=== PATIENT | female | born 1995 | race Hispanic/Latino ===

== ENCOUNTER 2024-12-03 01:28 | Inpatient (IN) | payer SELFPAY ==
[2024-12-03] VITALS (8 sets, daily range): BP systolic 89–122; BP diastolic 55–73; PULSE 74–112; RESP 18–20; TEMP 98.1–102.9; O2SAT 100
[~2024-12-03] VITALS: Ht 162.6 cm; Wt 75.6 kg
--- NOTE | 2024-12-03 01:44 | NUR ---
SEPSIS ALERT CALLED TO ROOM 20, PT WITH FEVER OF 105.3, PULSE OF 161
[2024-12-03] MEDS: 0.9%NACL 1000ML 2,190 ML IV ONE (01:54)
--- NOTE | 2024-12-03 01:54 | ERN ---
General Chief Complaint: Back Pain-No Injury Stated Complaint: C/O DIZZINESS, LEFT LOWER BACK PAIN Time Seen by MD: 01:41 Time Seen by Midlevel: 01:41 Source: patient History of Present Illness Initial Comments 29-year-old female who presents to the emergency department due to left lower back pain. Patient reports she initiated with dysuria and urinary tract symptoms one week ago. Patient was initiated on antibiotics (Bactrim) today. States she initiated feeling dizzy, nausea, vomiting, left back pain, chills onset this evening. Denies significant past medical history. Allergies: Coded Allergies: No Known Allergies (Unverified Allergy, Unknown, 12/03/24) Past Medical History Past Medical History: No Pertinent History Past Surgical History: Female( History) LMP: Nov 02, 2024 ROS Dictation Constitutional: Positive for chills Negative for fever, and weight loss Eyes: Negative for injury, pain,redness, and discharge ENT: Negative for injury,pain or swelling Cardiovascular: Negative for chest pain, palpitations, and edema Respiratory: Negative for shortness of breath, cough, and wheezing, Abdomen/GI: Positive for nausea, vomiting Negative for abdominal pain, diarrhea, and constipation Back: Positive for back pain Negative for injury and pain : Positive for dysuria Negative for bleeding or discharge MS/Extremity: Negative for injury and deformity Skin: Negative for rash, and discoloration Neuro: Negative for headache, weakness, numbness, tingling, and seizure Psych: Negative for suicide ideation, homicidal ideation, and hallucinations Physical Exam Orientation: (+) alert, (+) oriented x 3 Head/Face Trauma: No Eye: bilateral eye normal inspection, bilateral eye PERRL, bilateral eye EOMI Ear, Nose, Throat: (+) hearing grossly normal, (+) normal ENT inspection, (+) moist mucous membraine Neck: (+) normal inspection, (+) supple, (+) full range of motion Respiratory: (+) chest non-tender, (+) lungs clear Heart: (+) tachycardia Vascular: (+) no edema, (+) normal peripheral pulse Gastrointestinal: (+) soft, (+) bowel sound present, (+) tender Back: (+) CVA tenderness (L) Results Laboratory and Microbiology Lab and Micro Result Laboratory Tests Test 12/03/24 02:15 8/12/25 02:16 White Blood Count 8.2 K/uL (4.8-10.8) Red Blood Count 4.15 MIL/uL (4.00-5.50) Hemoglobin 12.9 g/dL (12.0-16.0) Hematocrit 38.5 % (36-48) Mean Corpuscular Volume 92.8 fL (79-99) Mean Corpuscular Hemoglobin 31.1 pg (27.0-33.0) Mean Corpuscular Hemoglobin Concent 33.5 g/dL (32.0-36.0) Red Cell Distribution Width 12.7 % (11.0-15.5) Platelet Count 229 K/uL (130-400) Mean Platelet Volume 9.4 fL (7.5-10.5) Immature Granulocyte % (Auto) 0.4 % (0-1) Neutrophils (%) (Auto) 87.2 % (40.0-77.0) H Lymphocytes (%) (Auto) 9.2 % (21.0-51.0) L Monocytes (%) (Auto) 2.7 % (3.0-13.0) L Eosinophils (%) (Auto) 0.1 % (0.0-8.0) Basophils (%) (Auto) 0.4 % (0.0-5.0) Neutrophils # (Auto) 7.1 K/uL (1.8-7.7) Lymphocytes # (Auto) 0.8 K/uL (1.0-4.8) L Monocytes # (Auto) 0.2 K/uL (0.1-1.0) Eosinophils # (Auto) 0.01 K/uL (0.00-0.70) Basophils # (Auto) 0.03 K/uL (0.00-0.20) Absolute Immature Granulocyte (auto 0.03 K/uL (0-1) Nucleated Red Blood Cells 0.0 % (0.0-0.19) Urine Color YELLOW (YELLOW) Urine Appearance CLOUDY (CLEAR) H Urine pH 6.0 (5.0-8.0) Urine Specific [place] 1.023 (1.001-1.031) Urine Protein 100 mg/dL (NEGATIVE) H Urine Glucose (UA) NEGATIVE mg/dL (NEGATIVE) Urine Ketones 5 mg/dL (NEGATIVE) H Urine Occult Blood MODERATE (NEGATIVE) H Urine Nitrate NEGATIVE (NEGATIVE) Urine Bilirubin 0.5 mg/dL (NEGATIVE) H Urine Urobilinogen 3 mg/dL (0.2-1.0) H Urine Leukocyte Esterase 250 Maria De Jesus/uL (NEGATIVE) H Urine RBC 26-50 /HPF (0-1) H Urine WBC >100 /HPF (0-1) H Urine Squamous Epithelial Cells FEW /HPF (0-2) Urine Bacteria RARE /HPF (None Seen) Urine HCG, Qualitative NEGATIVE (NEGATIVE) Sodium Level 137 mmol/L (136-145) Potassium Level 3.5 mmol/L (3.5-5.1) Chloride Level 101 mmol/L (101-111) Carbon Dioxide Level 26 mmol/L (21-32) Blood Urea Nitrogen 11 mg/dL (7-18) Creatinine 0.8 mg/dL (0.5-1.0) Glomerular Filtration Rate Calc 102 mL/min (>90) Random Glucose 141 mg/dL (70-105) H Lactic Acid Level 2.2 mmol/L (0.8-2.5) Total Calcium 8.9 mg/dL (8.5-10.1) Total Bilirubin 2.5 mg/dL (0.2-1.0) H Direct Bilirubin 1.0 mg/dL (0.0-0.3) H Aspartate Amino Transf (AST/SGOT) 123 U/L (10-37) H Alanine Aminotransferase (ALT/SGPT) 122 U/L (12-78) H Alkaline Phosphatase 84 U/L (50-136) Total Protein 7.2 g/dL (6.0-8.3) Albumin 3.4 g/dL (3.5-5.0) L Lipase 28 U/L (16-77) MDM Patient comes in tachycardic and febrile and made a sepsis alert. Patient given fluids labs drawn and a CT scan ordered to rule out pyelonephritis. She was given antibiotics. Her lactate came back at 2.2 she was given a 2 L of fluids and a 2nd lactate was ordered. I will call the hospitalist and admit her to the service. ED Course Orders Procedure Category Date Status Time Cbc With Differential LAB 12/03/24 In Process 01:41 Basic Metabolic Panel LAB 12/03/24 Complete 01:41 Urinalysis LAB 12/03/24 Complete W/Microscopic 01:41 Blood Cult YOLA 12/03/24 In Process 01:41 Lactic Acid LAB 12/03/24 Complete 01:41 ,Urine Test LAB 12/03/24 Complete 01:41 Lipase LAB 12/03/24 Complete 01:41 Hepatic Function Panel LAB 12/03/24 Complete 01:41 Ct Abdomen/Pelvis W/O CT 12/03/24 Resulted Contrast 01:41 Acetaminophen 500mg PHA 12/03/24 Complete Tab (Tylenol 500mg T 02:00 Ondansetron 4mg Inj PHA 12/03/24 Complete (Zofran 4mg Inj) 02:00 0.9%Nacl 1000ml (Ns PHA 12/03/24 In Process 1000ml) 02:00 Culture Urine YOLA 12/03/24 In Process 02:56 Ceftriaxone 1g Vial PHA 12/03/24 Complete (Rocephine 1g Inj) 03:00 Ketorolac PHA 12/03/24 Complete Tromethamine 15mg/Ml 03:00 Current Medications Medications (Trade) Dose Ordered Sig/Aiden Route PRN Reason Start Time Stop Time Status Last Admin Dose Admin Acetaminophen (TYLenol 500MG TAB) 1,000 mg ONCE ONCE PO 12/03/24 02:00 12/03/24 02:01 DC 12/03/24 01:54 Ceftriaxone Sodium (ROCEphine 1G INJ) 1 gm ONCE ONCE IVPB 12/03/24 03:00 12/03/24 03:07 DC 12/03/24 03:11 Ketorolac Tromethamine (toRADol) 15 mg ONCE ONCE IV 12/03/24 03:00 12/03/24 03:07 DC 12/03/24 03:12 Ondansetron HCl (zoFRAN 4MG INJ) 4 mg ONCE ONCE IVP 12/03/24 02:00 12/03/24 02:01 DC 12/03/24 01:54 Sodium Chloride 2,190 ml @ 730 mls/hr ONCE ONCE IV 12/03/24 02:00 12/03/24 04:59 12/03/24 01:54 Vital Signs Date Time Temp Pulse Resp B/P (MAP) Pulse Ox O2 Delivery O2 Flow Rate FiO2 12/03/24 03:15 107 22 96/52 98 Room Air* 0 21 12/03/24 02:46 101.7 110 20 104/63 97 Room Air* 0 21 12/03/24 01:54 105.1 12/03/24 01:46 105.1 142 22 92/55 97 Room Air* 0 21 12/03/24 01:35 105.3 161 20 106/52 97 Room Air DX & DISP Disposition: Inpatient Departure Impression: Primary Impression: Pyelonephritis Additional Impression: Lactic acidemia Condition: Stable CONNIE FLORES Dec 03, 2024 01:54 SUE JACOME MD Dec 03, 2024 04:09
[2024-12-03 02:15] LABS: IMMATURE GRANULOCYTE ABSOLUTE 0.03 K/uL (0-1); NUCLEATED RED BLOOD CELLS 0.0 % (0.0-0.19); PLATELET COUNT (AUTO) 229 K/uL (130-400); RED BLOOD CELL COUNT(AUTO) 4.15 MIL/uL (4.00-5.50); RED CELL DISTRIBUTION WIDTH 12.7 % (11.0-15.5); WHITE BLOOD COUNT (AUTO) 8.2 K/uL (4.8-10.8)
[2024-12-03 02:32] LABS: CREATININE 0.8 mg/dL (0.5-1.0); GLOMERULAR FILTR. RATE CALC 102.0 mL/min (>90); GLUCOSE,RANDOM 141.0 mg/dL (70-105); SODIUM SERUM 137.0 mmol/L (136-145); UREA NITROGEN, BLOOD 11.0 mg/dL (7-18)
[2024-12-03 02:36] LABS: ASPARTATE AMINOTRANSFERASE 123.0 U/L (10-37); TOTAL PROTEIN, SERUM 7.2 g/dL (6.0-8.3)
[2024-12-03 02:39] LABS: HCG,QUALITATIVE URINE NEGATIVE (NEGATIVE)
[2024-12-03 02:56] LABS: APPEARANCE,URINE CLOUDY (CLEAR); GLUCOSE, URINE (UA) NEGATIVE (NEGATIVE); LEUKOCYTE ESTERASE ,URINE 250 Leu/uL (NEGATIVE); NITRATE,URINE NEGATIVE (NEGATIVE); OCCULT BLOOD,URINE MODERATE (NEGATIVE); SQUAMOUS EPITHELIAL CELL,UR FEW /HPF (0-2)
--- NOTE | 2024-12-03 03:53 | HMCIMG ---
EXAM: CT Abdomen and Pelvis without IV contrast CLINICAL HISTORY: Left flank pain. TECHNIQUE: Thin collimated axial CT images of the abdomen and pelvis were obtained with sagittal and coronal reformatted images also submitted. CT scan is done according to ALARA (As Low As Reasonably Achievable). CONTRAST: None. COMPARISON: None. FINDINGS: The included lungs are clear. Mild to moderate hepatomegaly measures up to 22 cm craniocaudally. No focal hepatic abnormality. No focal abnormality within the gallbladder, pancreas, spleen, or adrenals. 0.2 cm obstructive calculus at the left vesicoureteral junction with mild proximal hydroureteronephrosis and perinephric inflammatory changes. There is a punctate nonobstructive calculus at the right renal lower pole. Grossly unremarkable urinary bladder. The uterus and ovaries are within normal limits. No obvious bowel wall thickening, dilatation, or obstruction. Unremarkable appendix. Uncomplicated colonic diverticula. Limited evaluation of the abdominal vessels due to the lack of intravenous contrast. No abdominal aortic aneurysm is evident. No pathological lymphadenopathy in the abdomen or pelvis. No ascites or pneumoperitoneum is evident. No acute bony abnormality is evident. Mild levocurvature of the thoracolumbar spine. IMPRESSIONS: 0.2 cm obstructive calculus at the left vesicoureteral junction with mild proximal hydroureteronephrosis and perinephric inflammatory changes. There is a punctate nonobstructive calculus at the right renal lower pole. Mild to moderate hepatomegaly without focal hepatic abnormality. Uncomplicated colonic diverticula. /[place]
[2024-12-03] MEDS: LACTATED RINGERS 1000ML IV STA (04:36)
--- NOTE | 2024-12-03 04:36 | HP ---
[facility] HISTORY AND PHYSICAL Date of Service: Dec 03, 2024 Time of Service: 04:35 Attending/ Supervising physicians: Dr. Hays and Dr. Katya Vela HISTORY OF PRESENT ILLNESS: Ms. Verdugo is a 29-year-old female with no past medical history who presents to [facility] ED for evaluation of left lower back pain. Patient reported she initiated with dysuria and urinary tract symptoms one week ago. Patient was initiated on antibiotics (Bactrim) today. She states she initiated feeling dizzy, nausea, vomiting, left back pain, chills onset this evening. Patient presented with a blood pressure of 106/52, heart rate 161, 105.3 F, 97% on room air. WBCs WNL. Lactic acid 2.2. Liver enzymes are elevated. Lipase WNL. UA: Positive ketones, leukocytes esterase. CT abdomen and pelvis without contrast: 0.2 cm obstructive calculus at the left vesicoureteral junction with mild proximal hydroureteronephrosis and perinephric inflammatory changes. There is a punctate nonobstructive calculus at the right renal lower pole. Mild to moderate hepatomegaly without focal hepatic abnormality. Uncomplicated colonic diverticula. ED administered LR1 L bolus, NS 2 L, Toradol 50 mg IV, Rocephin1 g, Zofran mg IV, Tylenol 1 g. ED provider requested patient be admitted to the hospital with a diagnosis of pyelonephritis and lactic acidemia. I assessed the patient at bedside. The patient appeared comfortable, breathing was even, unlabored, in no distress. She denied any chest pain, shortness of breath, any other pain, problem or concern. She states that the medications said they gave her helped her with the pain. I informed her of labs, diagnostics, and plan of care. She verbalized understanding and is in agreement with the plan. Plan and assessment are listed below. REVIEW OF SYSTEMS 12-point ROS reviewed with patient. All pertinent positives mentioned above. Otherwise negative, noncontributory, non-pertinent. PAST MEDICAL HISTORY: Denied PAST SURGICAL HISTORY: None PAST SOCIAL HISTORY: Denied alcohol, tobacco, illicit drug use FAMILY HISTORY: Noncontributory Coded Allergies: No Known Allergies (Unverified Allergy, Unknown, 12/03/24) PHYSICAL EXAM GENERAL APPEARANCE: The patient is awake, alert, and oriented, in no acute cardiopulmonary distress. NEUROLOGICAL: Cranial nerves II-XII grossly intact. Motor is 5/5 in bilateral upper and lower extremities proximal to distal. No sensory deficits. HEENT: Face is symmetric. Pupils are equal and reactive. Extraocular movements are intact. NECK: Supple. No JVD. No thyromegaly. No submental, submandibular, pre- /postauricular, occipital or supraclavicular lymphadenopathy. CHEST: Normal chest expansion. No Telemetry. LUNGS: Absence of any rales, rhonchi or any wheezing. CARDIOVASCULAR: Regular. S1 and S2 normal. No appreciable rubs, murmurs or gallops. ABDOMEN: Soft, nontender, and nondistended. There is no rebound, voluntary guarding, or rigidity. : Deferred. No Cole. EXTREMITIES: Non-edematous and not cyanotic. No clubbing. Good capillary refill. SKIN: No skin breakdown. Vital Sign (Last 24 Hours) 12/03/24 12/03/24 02:46 03:15 Temp 101.7 Pulse 107 Resp 22 B/P (MAP) 96/52 Pulse Ox 98 O2 Delivery Room Air* O2 Flow Rate 0 FiO2 21 LABS: Laboratory: Test 12/03/24 02:16 12/03/24 02:15 Range/Units Urine Color YELLOW YELLOW Urine Appearance CLOUDY H CLEAR Urine pH 6.0 5.0-8.0 Urine Specific [place] 1.023 1.001-1.031 Urine Protein 100 H NEGATIVE mg/dL Urine Glucose (UA) NEGATIVE NEGATIVE mg/dL Urine Ketones 5 H NEGATIVE mg/dL Urine Occult Blood MODERATE H NEGATIVE Urine Nitrate NEGATIVE NEGATIVE Urine Bilirubin 0.5 H NEGATIVE mg/dL Urine Urobilinogen 3 H 0.2-1.0 mg/dL Urine Leukocyte Esterase 250 H NEGATIVE Maria De Jesus/uL Urine RBC 26-50 H 0-1 /HPF Urine WBC >100 H 0-1 /HPF Urine Squamous Epithelial Cells FEW 0-2 /HPF Urine Bacteria RARE None Seen /HPF Urine HCG, Qualitative NEGATIVE NEGATIVE Sodium Level 137 136-145 mmol/L Potassium Level 3.5 3.5-5.1 mmol/L Chloride Level 101 101-111 mmol/L Carbon Dioxide Level 26 21-32 mmol/L Blood Urea Nitrogen 11 7-18 mg/dL Creatinine 0.8 0.5-1.0 mg/dL Glomerular Filtration Rate Calc 102 >90 mL/min Random Glucose 141 H 70-105 mg/dL Lactic Acid Level 2.2 0.8-2.5 mmol/L Total Calcium 8.9 8.5-10.1 mg/dL Total Bilirubin 2.5 H 0.2-1.0 mg/dL Direct Bilirubin 1.0 H 0.0-0.3 mg/dL Aspartate Amino Transf (AST/SGOT) 123 H 10-37 U/L Alanine Aminotransferase (ALT/SGPT) 122 H 12-78 U/L Alkaline Phosphatase 84 50-136 U/L Total Protein 7.2 6.0-8.3 g/dL Albumin 3.4 L 3.5-5.0 g/dL Lipase 28 16-77 U/L White Blood Count 8.2 4.8-10.8 K/uL Red Blood Count 4.15 4.00-5.50 MIL/uL Hemoglobin 12.9 12.0-16.0 g/dL Hematocrit 38.5 36-48 % Mean Corpuscular Volume 92.8 79-99 fL Mean Corpuscular Hemoglobin 31.1 27.0-33.0 pg Mean Corpuscular Hemoglobin Concent 33.5 32.0-36.0 g/dL Red Cell Distribution Width 12.7 11.0-15.5 % Platelet Count 229 130-400 K/uL Mean Platelet Volume 9.4 7.5-10.5 fL Immature Granulocyte % (Auto) 0.4 0-1 % Neutrophils (%) (Auto) 87.2 H 40.0-77.0 % Lymphocytes (%) (Auto) 9.2 L 21.0-51.0 % Monocytes (%) (Auto) 2.7 L 3.0-13.0 % Eosinophils (%) (Auto) 0.1 0.0-8.0 % Basophils (%) (Auto) 0.4 0.0-5.0 % Neutrophils # (Auto) 7.1 1.8-7.7 K/uL Lymphocytes # (Auto) 0.8 L 1.0-4.8 K/uL Monocytes # (Auto) 0.2 0.1-1.0 K/uL Eosinophils # (Auto) 0.01 0.00-0.70 K/uL Basophils # (Auto) 0.03 0.00-0.20 K/uL Absolute Immature Granulocyte (auto 0.03 0-1 K/uL Nucleated Red Blood Cells 0.0 0.0-0.19 % White Cell Morphology Comment See comments Current Medications Medications (Trade) Dose Ordered Sig/Aiden Route PRN Reason Start Time Stop Time Status Last Admin Dose Admin Lactated Ringer's (Lactated Ringers 1000ml) 1,000 ml BOLUS STAT IV 12/03/24 04:07 12/03/24 04:11 DC DIAGNOSTICS / RADIOLOGY: [ ] ASSESSMENT: Severe Sepsis, POA Hypotension, in need of multiple boluses and Midodrine Acute complicated cystitis, POA 0.2 cm obstructive calculus at the left vesicoureteral junction with: -mild proximal hydroureteronephrosis -perinephric inflammatory changes per CT on 12/03/2024 Punctate nonobstructive calculus at the right renal lower pole, per CT on 12/03/2024 Pyelonephritis, POA Lactic acidemia, POA Acute dehydration, POA/ketonuria, POA Acute febrile illness, POA Hepatomegaly, mild to moderate, per CT on 12/03/2024 Uncomplicated colonic diverticula, per CT on 12/03/2024 Hyperglycemia Transaminitis Hypoalbuminemia PLAN: -Admit to Medical floor. -Zosyn 3.375 IV q.8 hours. (ED administered Rocephin1 g) -LR at 150 mL/ hour. (ED administered LR 1 L bolus and NS 2 L bolus) -Flomax 0.4 mg p.o. daily 1st dose now. -Midodrine 10 mg p.o. one time dose. -Follow urine cultures and blood cultures. -Strain all urine. -Strict I&Os. -Consult urologist for obstructive calculus at the left vesicoureteral junction with mild proximal hydroureteronephrosis and perinephric inflammatory changes. -Obtain flu, COVID, and rapid strep swabs. -Follow urine cultures and blood cultures. -P.r.n. medications for pain management, nausea, vomiting, constipation, fever. -Monitor renal and liver function. -Monitor electrolytes and treat accordingly PRN. -Reconcile home medications once available. -Prn Glucometer checks. -Monitor respiratory status. -Oxygen therapy as needed. Titrate oxygen prn to keep Spo2>/+=92%. -Blood pressure checks every 4 hours and as needed. -AM labs. -GI and DVT prophylaxis -Further plan/orders per hospitalization course. ADVANCED CARE PLANNING 1. Which of the following were discussed? Hospice Care - No Therapeutic options - Yes Advance Directives - Yes Other discussions - 2. Discussed with who? The patient 3. Voluntary nature of this service was explained to the patient? Yes 4. Amount of time spent - _ critical care time: Over 35 minutes 5. Reviewed by Physician? (if this service was performed by GURDEEP) Yes ATTESTATION BY PHYSICIAN I reviewed the documentation, medical decision making, and treatment plan as noted by the GURDEEP above. I agree with the findings and plan of care. SHILOH KELLER [facility] Dec 03, 2024 04:36
[2024-12-03] MEDS ORDERED: LACTULOSE 20 GM/30 ML UDCUP PO PRN (05:00)
[2024-12-03] MEDS ORDERED: HYDROcodone/APAP 5/325 1 TAB TABLET PO PRN ×2 (05:00→10:30)
[2024-12-03] MEDS: LACTATED RINGERS 1000ML 1,000 ML IV SCH ×2 (05:16→06:05)
[2024-12-03 06:35] LABS: RAPID GROUP A STREP negative (NEGATIVE); SARS-CoV-2, RNA, NAAT NEGATIVE SARS CoV-2 (NEGATIVE)
[2024-12-03 06:45] LABS: INFLUENZA TYPE A Negative For Type A (NEGATIVE); INFLUENZA TYPE B Negative For Type B (NEGATIVE)
[2024-12-03] MEDS ORDERED: BACTSS PO (09:49)
[2024-12-03 10:34] LABS: NUCLEATED RED BLOOD CELLS 0.0 % (0.0-0.19); PLATELET COUNT (AUTO) 183.0 K/uL (130-400); RED BLOOD CELL COUNT(AUTO) 3.36 MIL/uL (4.00-5.50); RED CELL DISTRIBUTION WIDTH 12.9 % (11.0-15.5); WHITE BLOOD COUNT (AUTO) 10.7 K/uL (4.8-10.8)
[2024-12-03 10:42] LABS: CREATININE 0.6 mg/dL (0.5-1.0); GLOMERULAR FILTR. RATE CALC 125.0 mL/min (>90); GLUCOSE,RANDOM 133.0 mg/dL (70-105); SODIUM SERUM 137.0 mmol/L (136-145); UREA NITROGEN, BLOOD 9.0 mg/dL (7-18)
[2024-12-03 10:47] LABS: ASPARTATE AMINOTRANSFERASE 66.0 U/L (10-37); TOTAL PROTEIN, SERUM 5.5 g/dL (6.0-8.3)
[2024-12-03] MEDS ORDERED: ZOSYN 3.375GM +NS 50ML IVPB SCH (11:00)
[2024-12-03] MEDS ORDERED: 0.9%NACL 50ML IV SCH (11:00)
--- NOTE | 2024-12-03 15:23 | NUR ---
DCP:HOME Pt currently resides with her sps in their home. Pt does not report insecurities with food, prison, and/or utilities. Pt does not have DME, home health, or provider services. pt states that she is able to complete ADLs independently. Pt does not have a PCP, SW gave pt community resources and she stated that she will be registering with [facility] at [place]. AT [place] pt will want to go home and family can assist with transportation. Addendum: 12/03/24 at 1525 by BLANCA YEN SS Amended: Links added.
[2024-12-03] MEDS: MAGNESIUM 2GM PREMIX 50ML 50 ML IV SCH (16:22)
--- NOTE | 2024-12-03 17:30 | HMCIMG ---
CLINICAL INFORMATION Hepatomegaly, elevated liver enzymes COMPARISON CT abdomen and pelvis 12/03/2024 TECHNIQUE Transabdominal imaging of the right upper quadrant. FINDINGS LIVER Echogenicity: Normal. Size and Contour: Prominent size of the right hepatic lobe. Portal vein: Patent with hepatopetal flow and a normal waveform. BILIARY Ducts: Normal caliber intra and extrahepatic ducts. Gallbladder: Gallbladder wall thickening measuring up to 7 mm. RIGHT KIDNEY Echogenicity: Normal Size and Contour: Normal Stones: None Hydronephrosis: None. Cysts: None. Pancreas: Limited visualization. Other: No ascites or pleural effusion. MEASUREMENTS (cm) Liver length: 7 cm (normal variable, typically <15-16 cm in mid clavicular line) Common duct: 0.4 cm (normal variable by age and gallbladder status, typically <6 mm) Right Kidney (LxHxW): 11 cm IMPRESSION Prominent size of the right hepatic lobe. No evidence of hepatic steatosis or other parenchymal abnormality. Gallbladder wall thickening measuring up to 7 mm. No cholelithiasis or pericholecystic fluid. Findings are nonspecific and may be related to underlying liver disease. /Tyler
[2024-12-03 22:41] LABS: HEPATITIS A IGM ANTIBODY Non-Reactive (Nonreactive); HEPATITIS B CORE IGM ANTIBODY Non-Reactive (Negative)
--- NOTE | 2024-12-03 23:37 | NUR ---
EULA OLIVEIRA NOTIFIED OF PATIENTS FEVER TRENDING UP AFTER TYLENOL. PATIENT RECENTLY SHOWERED AND HAS ICE PACKS UNDER AXILLAS, BEHIND NECK AND IN GROIN. NO NEW ORDERS RECEIVED, CONTINUING TO MONITOR.
[2024-12-04] VITALS (10 sets, daily range): BP systolic 106–117; BP diastolic 61–72; PULSE 92–102; RESP 17–19; TEMP 97.6–102.3; O2SAT 96
[2024-12-04 05:08] LABS: NUCLEATED RED BLOOD CELLS 0.0 % (0.0-0.19); PLATELET COUNT (AUTO) 164.0 K/uL (130-400); RED BLOOD CELL COUNT(AUTO) 3.4 MIL/uL (4.00-5.50); RED CELL DISTRIBUTION WIDTH 13.0 % (11.0-15.5); WHITE BLOOD COUNT (AUTO) 7.2 K/uL (4.8-10.8)
[2024-12-04 05:33] LABS: CREATININE 0.6 mg/dL (0.5-1.0); GLOMERULAR FILTR. RATE CALC 125.0 mL/min (>90); GLUCOSE,RANDOM 113.0 mg/dL (70-105); PHOSPHORUS 1.9 mg/dL (2.5-4.9); SODIUM SERUM 136.0 mmol/L (136-145); UREA NITROGEN, BLOOD 6.0 mg/dL (7-18)
--- NOTE | 2024-12-04 10:23 | PN ---
INFECTIOUS DISEASE FOLLOWUP NOTE DATE OF SERVICE: 12/03/2024 SUBJECTIVE: The patient is seen and examined at bedside. No fever or chills. Complaining of lower abdominal pain. No cough, no hemoptysis. Tolerating antibiotic. No chest pain. No palpitations or orthopnea. No depression. No suicidal ideation. PHYSICAL EXAMINATION: VITAL SIGNS: Temperature 98.9. EYES: No icterus. Pupils are equal and reactive. HENT: No oral thrush seen. Moist oral mucosa. NECK: Supple. No JVD or thyromegaly. LUNGS: Good air entry. No rales. No rhonchi. CARDIOVASCULAR SYSTEM: S1 and S2, regular. No murmur heard. ABDOMEN: Full, soft. Mild tenderness left quadrant. CENTRAL NERVOUS SYSTEM: Awake, alert, oriented x 3. No focal deficits. SKIN: No rashes. No itchiness. LYMPHATIC: No peripheral lymphadenopathy. BACK: No deformity. No pressure ulcer. HEMATOLOGIC: No bleeding or petechial lesions seen. MUSCULOSKELETAL: No joint swelling, erythema or tenderness. ASSESSMENT: A 29-year-old female presented with fever, chills and flank pain. CURRENT PROBLEMS: Include: * Possible gram-negative sepsis. * Left-sided hydronephrosis. * UTI. * Abdominal pain. PLAN: * Continue ceftriaxone. * Follow up cultures. * Continue IV fluids. * Continue pain management. * Continue antiemetic. * Continue Flomax. * Monitor electrolyte and correct as needed. TID: [id number] RECEIPT: [id number]
--- NOTE | 2024-12-04 10:30 | CONS ---
REQUESTING PHYSICIAN: Parminder Hays MD REASON FOR CONSULTATION: Left flank pain. HISTORY OF PRESENT ILLNESS: Dear Dr. Hays, I had the pleasure of seeing the patient, a 29-year-old female, because of left lower back pain and left flank pain. The patient with fever, headaches, chills, dysuria of about a week's duration, treated as an outpatient with Bactrim, currently receiving Rocephin. The patient has no prior history of kidney stones. ALLERGIES: The patient's allergies are none. CURRENT MEDICATIONS: Include Toradol, Rocephin, Zofran, Tylenol, and Protonix. PAST MEDICAL HISTORY: , diabetes, hypertension, thyroid disease. PAST SURGICAL HISTORY: x 2. FAMILY HISTORY: Negative for kidney stones. 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 Does not smoke or drink. REVIEW OF SYSTEMS: Currently, has no shortness of breath or chest pain. Her appetite is poor. She has some nausea, no vomiting. No constipation or diarrhea. No headaches or dizziness. No nosebleed. No joint pain, joint swelling, limitation of movement, night sweat, fever, chills, or skin rash. PHYSICAL EXAMINATION: GENERAL: On exam, well-developed female, in mild discomfort. VITAL SIGNS: Her temperature is 98, it had been 101.7 on admission. Her blood pressure is 100/52 with a pulse of 90. NECK: No adenopathy or supraclavicular masses palpable. LUNGS: Lung mukherjee are clear to auscultation and percussion. HEART: Heart sounds are best heard in the fifth intercostal space. ABDOMEN: Full, soft, and nontender. BACK: Has mild CVA on the left hand side. EXTERNAL GENITALIA AND RECTAL: Deferred. LABORATORY DATA: Reviewed in detail. Urinalysis shows cloudy yellow urine, specific gravity of 1.023, pH of 6. The patient has rare bacteria in the urine, but she does have a large amount of white cells and red cells and leukocyte esterase in her urine. The patient's white count on admission is 8.2, hematocrit is 38, her platelet count is 229. Sodium 139, potassium 3.5 and her BUN and creatinine are 11/0.8. IMAGING STUDIES: The patient's imaging studies reviewed today include a CT scan of her abdomen and pelvis, which shows a 2 mm distal ureteric stone on the left hand side with mild hydroureter and hydronephrosis on the left hand side at that time. ASSESSMENT: * Left renal colic. * Urinary tract infection. * Lactic acidemia of 2.2. * The patient also has a punctate nonobstructive right lower pole kidney stone. RECOMMENDATIONS: * IV hydration. * IV antibiotics. * Functional study with intravenous . * Culture-specific antibiotics. * If her functional study shows high-grade obstruction, proceed with nephrostomy tube placement on the left hand side or ureteric stent with ultimate ureteroscopy, stone basketing, indicated procedures for removal of the stone in the 2-stage procedure. The patient's concerns have been answered. Thank you for the opportunity for providing consultation on your patient. Sincerely, TID: [id number] RECEIPT: [id number]
[2024-12-04] MEDS ORDERED: IOHEXOL-350 50ML VIAL IV ONE (12:03)
--- NOTE | 2024-12-04 15:36 | HMCIMG ---
IVP W/WO TOMOGRAMS HISTORY: Postmenopausal CLINICAL HISTORY: Left renal calculus. COMPARISON: None. TECHNIQUES: Intravenous excretory urogram was performed with tomography. FINDINGS: A cage/vault supervisor film of the abdomen shows no soft tissue abnormality and no pathologic calcification overlying the renal contour or bladder noted. Following intravenous infusion of 100 cc of Omnipaque 350 contrast material, there is prompt symmetrical concentration as noted by nephrograms. No filling defect of the collecting systems are noted. There is normal and symmetrical filling of the calyceal system. Subsequent films demonstrate that the kidneys are of normal size and contour bilaterally. The calyceal system and ureters are in their usual position and show no signs of obstruction or intraluminal defects. The post void film shows normal emptying of the collecting system including the urinary bladder. IMPRESSION: Negative intravenous urogram.
--- NOTE | 2024-12-04 16:08 | PN ---
INFECTIOUS DISEASE PROGRESS NOTE Date of Service: Dec 04, 2024 SUBJECTIVE: This 29 year old female patient is being seen today at bedside. Awake, alert and oriented x3. Patient has been having fevers, highest being 102.4. No growth to blood cultures to the first 24 hours. Urine cultures still pending. At this time patient antibiotics will be adjusted. She was evaluated by urologist. We continue to follow patient closely. PHYSICAL EXAM EYES: Anicteric. Pupils equal and reactive. HENT: No oral thrush seen, moist Oral mucosa NECK: Supple, no JVD or thyromegaly. LUNGS: Good air entry. No rales, no rhonchi. CARDIOVASCULAR: S1, S2 regular. No murmur heard. ABDOMEN: Soft, non tender, bowel sounds present, no organomegaly CENTRAL NERVOUS SYSTEM: Awake, alert, oriented x 3. No focal deficits. SKIN: No rashes, no swelling. LYMPHATICS: No peripheral lymphadenopathy MUSCULOSKELETAL: No joint swelling, erythema or tenderness. EXTREMITIES: No cyanosis or clubbing BACK: No deformity, no pressure ulcer. Vital Sign (Last 12 Hours) 12/04/24 12/04/24 12/04/24 12/04/24 04:00 04:27 08:00 08:00 Temp 102.4 100.2 100.6 Pulse 92 Resp 18 B/P (MAP) 106/61 Pulse Ox 96 96 O2 Delivery Room Air* Room Air O2 Flow Rate 0 FiO2 21 Intake & Output (last 24hrs) 12/03/24 12/03/24 12/04/24 15:00 23:00 07:00 Intake Total 200 ml 120 ml Output Total 200 ml 300 ml Balance 0 ml -180 ml LABS: Laboratory: Test 12/04/24 12:11 12/04/24 04:42 12/03/24 07:29 12/03/24 06:11 Range/Units Whole Blood Glucose 84 70-110 MG/DL White Blood Count 7.2 # 4.8-10.8 K/uL Red Blood Count 3.40 L 4.00-5.50 MIL/uL Hemoglobin 10.7 L 12.0-16.0 g/dL Hematocrit 31.8 L 36-48 % Mean Corpuscular Volume 93.5 79-99 fL Mean Corpuscular Hemoglobin 31.5 27.0-33.0 pg Mean Corpuscular Hemoglobin Concent 33.6 32.0-36.0 g/dL Red Cell Distribution Width 13.0 11.0-15.5 % Platelet Count 164 130-400 K/uL Mean Platelet Volume 9.8 7.5-10.5 fL Nucleated Red Blood Cells 0.0 0.0-0.19 % Sodium Level 136 136-145 mmol/L Potassium Level 3.6 3.5-5.1 mmol/L Chloride Level 104 101-111 mmol/L Carbon Dioxide Level 23 21-32 mmol/L Blood Urea Nitrogen 6 L 7-18 mg/dL Creatinine 0.6 0.5-1.0 mg/dL Glomerular Filtration Rate Calc 125 >90 mL/min Random Glucose 113 H 70-105 mg/dL Total Calcium 7.9 L 8.5-10.1 mg/dL Phosphorus Level 1.9 L 2.5-4.9 mg/dL Magnesium Level 1.90 1.80-2.40 mg/dL Lactic Acid Level 1.0 0.8-2.5 mmol/L Total Bilirubin 2.0 H 0.2-1.0 mg/dL Aspartate Amino Transf (AST/SGOT) 66 H 10-37 U/L Alanine Aminotransferase (ALT/SGPT) 89 #H 12-78 U/L Alkaline Phosphatase 58 # 50-136 U/L Total Protein 5.5 #L 6.0-8.3 g/dL Albumin 2.5 #L 3.5-5.0 g/dL Influenza Type A Antigen Negative For Type A NEGATIVE Influenza Type B Antigen Negative For Type B NEGATIVE SARS-CoV-2, RNA, NAAT NEGATIVE SARS CoV-2 NEGATIVE Group A Streptococcus Rapid negative NEGATIVE Test 12/03/24 02:16 12/03/24 02:15 12/03/24 01:55 Range/Units Urine Color YELLOW YELLOW Urine Appearance CLOUDY H CLEAR Urine pH 6.0 5.0-8.0 Urine Specific [place] 1.023 1.001-1.031 Urine Protein 100 H NEGATIVE mg/dL Urine Glucose (UA) NEGATIVE NEGATIVE mg/dL Urine Ketones 5 H NEGATIVE mg/dL Urine Occult Blood MODERATE H NEGATIVE Urine Nitrate NEGATIVE NEGATIVE Urine Bilirubin 0.5 H NEGATIVE mg/dL Urine Urobilinogen 3 H 0.2-1.0 mg/dL Urine Leukocyte Esterase 250 H NEGATIVE Maria De Jesus/uL Urine RBC 26-50 H 0-1 /HPF Urine WBC >100 H 0-1 /HPF Urine Squamous Epithelial Cells FEW 0-2 /HPF Urine Bacteria RARE None Seen /HPF Urine HCG, Qualitative NEGATIVE NEGATIVE Direct Bilirubin 1.0 H 0.0-0.3 mg/dL Lipase 28 16-77 U/L Immature Granulocyte % (Auto) 0.4 0-1 % Neutrophils (%) (Auto) 87.2 H 40.0-77.0 % Lymphocytes (%) (Auto) 9.2 L 21.0-51.0 % Monocytes (%) (Auto) 2.7 L 3.0-13.0 % Eosinophils (%) (Auto) 0.1 0.0-8.0 % Basophils (%) (Auto) 0.4 0.0-5.0 % Neutrophils # (Auto) 7.1 1.8-7.7 K/uL Lymphocytes # (Auto) 0.8 L 1.0-4.8 K/uL Monocytes # (Auto) 0.2 0.1-1.0 K/uL Eosinophils # (Auto) 0.01 0.00-0.70 K/uL Basophils # (Auto) 0.03 0.00-0.20 K/uL Absolute Immature Granulocyte (auto 0.03 0-1 K/uL White Cell Morphology Comment See comments Hepatitis A IgM Antibody Non-Reactive Nonreactive Hepatitis B Surface Antigen. Non-Reactive Nonreactive Hepatitis B Core IgM Antibody Non-Reactive Negative Hepatitis C Antibody Non-Reactive Nonreactive DIAGNOSTICS / RADIOLOGY: REASON: LEFT RENAL CALCULI ORDERING PHYSICIAN: TAMMY TITUS MD PROCEDURE: IVP - IVP W/WO TOMOGRAMS IVP W/WO TOMOGRAMS HISTORY: Postmenopausal CLINICAL HISTORY: Left renal calculus. COMPARISON: None. TECHNIQUES: Intravenous excretory urogram was performed with tomography. FINDINGS: A animal care assistant film of the abdomen shows no soft tissue abnormality and no pathologic calcification overlying the renal contour or bladder noted. Following intravenous infusion of 100 cc of Omnipaque 350 contrast material, there is prompt symmetrical concentration as noted by nephrograms. No filling defect of the collecting systems are noted. There is normal and symmetrical filling of the calyceal system. Subsequent films demonstrate that the kidneys are of normal size and contour bilaterally. The calyceal system and ureters are in their usual position and show no signs of obstruction or intraluminal defects. The post void film shows normal emptying of the collecting system including the urinary bladder. IMPRESSION: Negative intravenous urogram. REASON: transaminitis, hepatomegaly ORDERING PHYSICIAN: RUSS DIAZ MD PROCEDURE: [id number] - US ABDOMINAL RUQ\LTD CLINICAL INFORMATION Hepatomegaly, elevated liver enzymes COMPARISON CT abdomen and pelvis 12/03/2024 TECHNIQUE Transabdominal imaging of the right upper quadrant. FINDINGS LIVER Echogenicity: Normal. Size and Contour: Prominent size of the right hepatic lobe. Portal vein: Patent with hepatopetal flow and a normal waveform. BILIARY Ducts: Normal caliber intra and extrahepatic ducts. Gallbladder: Gallbladder wall thickening measuring up to 7 mm. RIGHT KIDNEY Echogenicity: Normal Size and Contour: Normal Stones: None Hydronephrosis: None. Cysts: None. Pancreas: Limited visualization. Other: No ascites or pleural effusion. MEASUREMENTS (cm) Liver length: 7 cm (normal variable, typically <15-16 cm in mid clavicular line) Common duct: 0.4 cm (normal variable by age and gallbladder status, typically <6 mm) Right Kidney (LxHxW): 11 cm IMPRESSION Prominent size of the right hepatic lobe. No evidence of hepatic steatosis or other parenchymal abnormality. Gallbladder wall thickening measuring up to 7 mm. No cholelithiasis or pericholecystic fluid. Findings are nonspecific and may be related to underlying liver disease. /Eads REASON: L flank pain ORDERING PHYSICIAN: CONNIE FLORES PROCEDURE: ABD PEL WO - CT ABDOMEN/PELVIS W/O CONTRAST EXAM: CT Abdomen and Pelvis without IV contrast CLINICAL HISTORY: Left flank pain. TECHNIQUE: Thin collimated axial CT images of the abdomen and pelvis were obtained with sagittal and coronal reformatted images also submitted. CT scan is done according to ALARA (As Low As Reasonably Achievable). CONTRAST: None. COMPARISON: None. FINDINGS: The included lungs are clear. Mild to moderate hepatomegaly measures up to 22 cm craniocaudally. No focal hepatic abnormality. No focal abnormality within the gallbladder, pancreas, spleen, or adrenals. 0.2 cm obstructive calculus at the left vesicoureteral junction with mild proximal hydroureteronephrosis and perinephric inflammatory changes. There is a punctate nonobstructive calculus at the right renal lower pole. Grossly unremarkable urinary bladder. The uterus and ovaries are within normal limits. No obvious bowel wall thickening, dilatation, or obstruction. Unremarkable appendix. Uncomplicated colonic diverticula. Limited evaluation of the abdominal vessels due to the lack of intravenous contrast. No abdominal aortic aneurysm is evident. No pathological lymphadenopathy in the abdomen or pelvis. No ascites or pneumoperitoneum is evident. No acute bony abnormality is evident. Mild levocurvature of the thoracolumbar spine. IMPRESSIONS: 0.2 cm obstructive calculus at the left vesicoureteral junction with mild proximal hydroureteronephrosis and perinephric inflammatory changes. There is a punctate nonobstructive calculus at the right renal lower pole. Mild to moderate hepatomegaly without focal hepatic abnormality. Uncomplicated colonic diverticula. /[place] ASSESSMENT: * Possible gram-negative sepsis. * Left-sided hydronephrosis. * UTI. * Abdominal pain. PLAN: * D/C ceftriaxone. * Follow up cultures. * Continue IV fluids. * Continue pain management. * Continue antiemetic. * Continue Flomax. * Monitor electrolyte and correct as needed. * Start Zosyn * Follow urologist recommendations. This case has been discussed with my supervising physician Dr. Spears. The case has been discussed and agreed upon. ROSALVA CORDERO [facility] Dec 04, 2024 16:08
--- NOTE | 2024-12-04 16:51 | PN ---
[facility] PROGRESS NOTE Date of Service: Dec 04, 2024 Time of Service: 16:50 SUBJECTIVE: [ ] 12/04 patient is seen and examined at bedside, she remains admitted to the medical floor, case discussed with the RN, no acute events overnight, patient getting IV fluids and IV antibiotics at the time of my visit. Spiked temperature 100.6. The patient underwent intravenous pyelogram, results available at the time of my dictation, negative intravenous urogram. Urology input noted and appreciated. We will continue current pain medication. Continue to follow results of septic workup, continue to follow infectious disease input and recommendation. Anticipate discharge home in the next 24-48 hours if medically stable. Patient in agreement. REVIEW OF SYSTEMS 12-point ROS reviewed with patient. All pertinent positives mentioned above. Otherwise negative, noncontributory, non-pertinent. PHYSICAL EXAM GENERAL APPEARANCE: The patient is awake, alert, and oriented, in no acute cardiopulmonary distress. NEUROLOGICAL: Cranial nerves II-XII grossly intact. Motor is 5/5 in bilateral upper and lower extremities proximal to distal. No sensory deficits. HEENT: Face is symmetric. Pupils are equal and reactive. Extraocular movements are intact. NECK: Supple. No JVD. No thyromegaly. No submental, submandibular, pre- /postauricular, occipital or supraclavicular lymphadenopathy. CHEST: Normal chest expansion. No Telemetry. LUNGS: Absence of any rales, rhonchi or any wheezing. CARDIOVASCULAR: Regular. S1 and S2 normal. No appreciable rubs, murmurs or gallops. ABDOMEN: Soft, nontender, and nondistended. There is no rebound, voluntary guarding, or rigidity. : Deferred. No Cole. EXTREMITIES: Non-edematous and not cyanotic. No clubbing. Good capillary refill. SKIN: No skin breakdown. Vital Signs (last 8hr) Date Time Temp Pulse Resp B/P (MAP) Pulse Ox O2 Delivery O2 Flow Rate FiO2 12/04/24 16:00 99.3 95 18 107/64 99 Room Air LABS: Laboratory: Test 12/04/24 12:11 12/04/24 04:42 12/03/24 07:29 12/03/24 06:11 Range/Units Whole Blood Glucose 84 70-110 MG/DL White Blood Count 7.2 # 4.8-10.8 K/uL Red Blood Count 3.40 L 4.00-5.50 MIL/uL Hemoglobin 10.7 L 12.0-16.0 g/dL Hematocrit 31.8 L 36-48 % Mean Corpuscular Volume 93.5 79-99 fL Mean Corpuscular Hemoglobin 31.5 27.0-33.0 pg Mean Corpuscular Hemoglobin Concent 33.6 32.0-36.0 g/dL Red Cell Distribution Width 13.0 11.0-15.5 % Platelet Count 164 130-400 K/uL Mean Platelet Volume 9.8 7.5-10.5 fL Nucleated Red Blood Cells 0.0 0.0-0.19 % Sodium Level 136 136-145 mmol/L Potassium Level 3.6 3.5-5.1 mmol/L Chloride Level 104 101-111 mmol/L Carbon Dioxide Level 23 21-32 mmol/L Blood Urea Nitrogen 6 L 7-18 mg/dL Creatinine 0.6 0.5-1.0 mg/dL Glomerular Filtration Rate Calc 125 >90 mL/min Random Glucose 113 H 70-105 mg/dL Total Calcium 7.9 L 8.5-10.1 mg/dL Phosphorus Level 1.9 L 2.5-4.9 mg/dL Magnesium Level 1.90 1.80-2.40 mg/dL Lactic Acid Level 1.0 0.8-2.5 mmol/L Total Bilirubin 2.0 H 0.2-1.0 mg/dL Aspartate Amino Transf (AST/SGOT) 66 H 10-37 U/L Alanine Aminotransferase (ALT/SGPT) 89 #H 12-78 U/L Alkaline Phosphatase 58 # 50-136 U/L Total Protein 5.5 #L 6.0-8.3 g/dL Albumin 2.5 #L 3.5-5.0 g/dL Influenza Type A Antigen Negative For Type A NEGATIVE Influenza Type B Antigen Negative For Type B NEGATIVE SARS-CoV-2, RNA, NAAT NEGATIVE SARS CoV-2 NEGATIVE Group A Streptococcus Rapid negative NEGATIVE Test 12/03/24 02:16 12/03/24 02:15 12/03/24 01:55 Range/Units Urine Color YELLOW YELLOW Urine Appearance CLOUDY H CLEAR Urine pH 6.0 5.0-8.0 Urine Specific [place] 1.023 1.001-1.031 Urine Protein 100 H NEGATIVE mg/dL Urine Glucose (UA) NEGATIVE NEGATIVE mg/dL Urine Ketones 5 H NEGATIVE mg/dL Urine Occult Blood MODERATE H NEGATIVE Urine Nitrate NEGATIVE NEGATIVE Urine Bilirubin 0.5 H NEGATIVE mg/dL Urine Urobilinogen 3 H 0.2-1.0 mg/dL Urine Leukocyte Esterase 250 H NEGATIVE Maria De Jesus/uL Urine RBC 26-50 H 0-1 /HPF Urine WBC >100 H 0-1 /HPF Urine Squamous Epithelial Cells FEW 0-2 /HPF Urine Bacteria RARE None Seen /HPF Urine HCG, Qualitative NEGATIVE NEGATIVE Direct Bilirubin 1.0 H 0.0-0.3 mg/dL Lipase 28 16-77 U/L Immature Granulocyte % (Auto) 0.4 0-1 % Neutrophils (%) (Auto) 87.2 H 40.0-77.0 % Lymphocytes (%) (Auto) 9.2 L 21.0-51.0 % Monocytes (%) (Auto) 2.7 L 3.0-13.0 % Eosinophils (%) (Auto) 0.1 0.0-8.0 % Basophils (%) (Auto) 0.4 0.0-5.0 % Neutrophils # (Auto) 7.1 1.8-7.7 K/uL Lymphocytes # (Auto) 0.8 L 1.0-4.8 K/uL Monocytes # (Auto) 0.2 0.1-1.0 K/uL Eosinophils # (Auto) 0.01 0.00-0.70 K/uL Basophils # (Auto) 0.03 0.00-0.20 K/uL Absolute Immature Granulocyte (auto 0.03 0-1 K/uL White Cell Morphology Comment See comments Hepatitis A IgM Antibody Non-Reactive Nonreactive Hepatitis B Surface Antigen. Non-Reactive Nonreactive Hepatitis B Core IgM Antibody Non-Reactive Negative Hepatitis C Antibody Non-Reactive Nonreactive Current Medications Medications (Trade) Dose Ordered Sig/Aiden Route PRN Reason Start Time Stop Time Status Last Admin Dose Admin Acetaminophen (TYLenol 325MG TAB) 650 mg Q6H PRN PO FEVER/MILD PAIN LEVEL 1-3 12/03/24 05:00 01/02/25 04:59 12/04/24 03:28 650 MG Acetaminophen (TYLenol 650MG SUPPOSITORY) 650 mg Q6H PRN RC FEVER / MILD PAIN 1-3 IF NPO 12/03/24 05:00 01/02/25 04:59 Acetaminophen/ Hydrocodone Bitart (NORco 5/325MG) 1 tab Q6H PRN PO MODERATE PAIN (4-6) 12/03/24 10:30 12/08/24 10:29 Acetaminophen/ Hydrocodone Bitart (NORco 5/325MG) FOR MODERATE PAIN SC... Q6H PRN PO PAIN 4-10 12/03/24 05:00 12/03/24 10:23 DC Ceftriaxone Sodium (ROCEphine 1G INJ) 1 gm Q24H IVPB 12/03/24 10:30 12/04/24 16:17 DC 12/04/24 09:53 1 GM Docusate Sodium (COLace 100MG CAP) 100 mg BID PRN PO CONSTIPATION 12/03/24 05:00 01/02/25 04:59 Insulin Human Regular (humuLIN R 100 UNIT/ML 3ML) INSULIN SLIDING SCAL... Q6H6 SQ 12/03/24 06:00 12/03/24 16:30 DC Ketorolac Tromethamine (toRADol) 30 mg Q6H PRN IVP SEVERE PAIN (7-10) 12/03/24 05:00 12/03/24 04:53 DC Labetalol HCl (TRANdate 20MG SYG) 10 mg Q2H PRN IV SBP GREATER THAN 160 12/03/24 05:00 01/02/25 04:59 Lactated Ringer's 1,000 ml @ 75 mls/hr [id number] IV 12/03/24 05:00 12/03/24 05:29 DC 12/03/24 05:16 75 MLS/HR Lactated Ringer's 1,000 ml @ 150 mls/hr Q6H40M IV 12/03/24 05:30 01/02/25 05:29 12/04/24 09:53 150 MLS/HR Lactated Ringer's (Lactated Ringers 1000ml) 1,000 ml BOLUS STAT IV 12/03/24 04:07 12/03/24 04:11 DC 12/03/24 04:36 1,000 ML Lactulose (Constulose 20gm/ 30ml Udcup) 20 gm Q6H PRN PO CONSTIPATION 12/03/24 05:00 01/02/25 04:59 Magnesium Sulfate 50 ml @ 0 mls/hr PROTOCOL IV 12/03/24 16:00 01/02/25 15:59 12/03/24 16:22 25 MLS/HR Morphine Sulfate (morPHINE 2MG SYG) 2 mg Q8H PRN IVP SEVERE PAIN (7-10) 12/03/24 05:00 12/10/24 04:59 Ondansetron HCl (zoFRAN 4MG INJ) 4 mg Q6H PRN IVP NAUSEA/VOMITING 12/03/24 05:00 01/02/25 04:59 Piperacillin Sod/ Tazobactam Sod (Zosyn 3.375gm+NS 50ml) 3.375 gm Q8H IV 12/04/24 16:30 12/14/24 16:29 Piperacillin Sod/ Tazobactam Sod (Zosyn 3.375gm+NS 50ml) 3.375 gm Q8H IVPB 12/03/24 11:00 12/03/24 10:20 DC Sodium Chloride (NS 50ml) 50 ml AD IV 12/03/24 11:00 12/03/24 10:21 DC Tamsulosin HCl (FloMAX) 0.4 mg DAILY PO 12/03/24 05:00 01/02/25 04:59 12/04/24 09:53 0.4 MG Temazepam (restORIL 15 MG CAP) 15 mg HS PRN PO INSOMNIA/SLEEP 12/03/24 05:00 01/02/25 04:59 DIAGNOSTICS / RADIOLOGY: [ ] ASSESSMENT: Severe Sepsis, POA Hypotension, in need of multiple boluses and Midodrine Acute complicated cystitis, POA 0.2 cm obstructive calculus at the left vesicoureteral junction with: -mild proximal hydroureteronephrosis -perinephric inflammatory changes per CT on 12/03/2024 Punctate nonobstructive calculus at the right renal lower pole, per CT on 12/03/2024 Pyelonephritis, POA Lactic acidemia, POA Acute dehydration, POA/ketonuria, POA Acute febrile illness, POA Hepatomegaly, mild to moderate, per CT on 12/03/2024 Uncomplicated colonic diverticula, per CT on 12/03/2024 Hyperglycemia Transaminitis Hypoalbuminemia PLAN: patient is seen and examined at bedside, she remains admitted to the medical floor, case discussed with the RN, no acute events overnight, patient getting IV fluids and IV antibiotics at the time of my visit. Spiked temperature 100.6. The patient underwent intravenous pyelogram, results available at the time of my dictation, negative intravenous urogram. Urology input noted and appreciated. We will continue current pain medication. Continue to follow results of septic workup, continue to follow infectious disease input and recommendation. Anticipate discharge home in the next 24-48 hours if medically stable. Patient in agreement. NEURO: Minimize central acting medications as possible. Fall Precautions. Well lighted room through the day and minimize interruptions through the night to prevent acute delirium. PULMONARY: Supplemental 02 as needed BiPAP as necessary, for respiratory distress Titrate Fio2 to keep Spo2 > or = 90% DuoNebs and CPT as needed IS hourly while awake for pulmonary hygiene prn Out of bed to chair as tolerated Maintain aspiration precautions at all times CARDIOVASCULAR: Follow hemodynamics. Vital signs per facility protocol GI & NUTRITION: Continue nutritional support Aspirations precautions Prokinetic agents and laxatives as needed KIDNEYS & ELECTROLYTES: Strict monitoring of intake and output Daily weights Avoid nephrotoxic agents Monitor electrolytes and replace as needed Goal urine output of 30mL/hr or 0.5mL/kg/hr Medications to be dosed according to renal function. Avoid contrast if possible ENDOCRINE: Maintain blood glucose between 100-180 at all times. Insulin sliding scale for blood glucose management Hypoglycemia and hyperglycemia protocol in place INFECTIOUS DISEASE: Trend temperature, WBC and procalcitonin level Follow cultures, deescalate antibiotics as soon as possible. Panculture if new onset fever HEMATOLOGY & COAGULATION: Monitor H&H. Keep Hgb > 7 Transfuse 1 unit of PRBC for Hgb < 7 Transfuse 1 pack of platelets of platelets < 20, 000 Watch for any signs and symptoms of bleeding SKIN: Pressure ulcer prevention per facility protocol Specialty mattress as needed ORTHO/REHAB Continue PT/OT PRN: MEDICATIONS Tylenol 650 mg po every 4 hrs for fever zofran 4 mg IV every 6 hrs for n/v Hydralazine 5 mg IV every 4 hrs systolic pressure > 160 bowel regiment: lactulose 20 gm PO BID PRN constipation Supportive measures: Continue GI and DVT prophylaxis All questions answered time spent: > 35 min RUSS DIAZ MD Dec 04, 2024 16:51
[2024-12-04] MEDS: ZOSYN 3.375GM +NS 50ML IV SCH (17:01)
[2024-12-05] VITALS (7 sets, daily range): BP systolic 94–119; BP diastolic 57–75; PULSE 65–94; RESP 17–18; TEMP 97.9–102.5; O2SAT 97
[2024-12-05 05:21] LABS: NUCLEATED RED BLOOD CELLS 0.0 % (0.0-0.19); PLATELET COUNT (AUTO) 183.0 K/uL (130-400); RED BLOOD CELL COUNT(AUTO) 3.3 MIL/uL (4.00-5.50); RED CELL DISTRIBUTION WIDTH 12.8 % (11.0-15.5); WHITE BLOOD COUNT (AUTO) 4.7 K/uL (4.8-10.8)
[2024-12-05 06:00] LABS: ASPARTATE AMINOTRANSFERASE 98.0 U/L (10-37); CREATININE 0.7 mg/dL (0.5-1.0); GLOMERULAR FILTR. RATE CALC 120.0 mL/min (>90); GLUCOSE,RANDOM 106.0 mg/dL (70-105); SODIUM SERUM 137.0 mmol/L (136-145); TOTAL PROTEIN, SERUM 6.1 g/dL (6.0-8.3); UREA NITROGEN, BLOOD 5.0 mg/dL (7-18)
[2024-12-05] MEDS ORDERED: IOHEXOL-350 75 ML VIAL IV ONE (10:19)
--- NOTE | 2024-12-05 11:32 | PN ---
[facility] PROGRESS NOTE Date of Service: Dec 05, 2024 Time of Service: 11:31 SUBJECTIVE: [ ] 12/04 patient is seen and examined at bedside, she remains admitted to the medical floor, case discussed with the RN, no acute events overnight, patient getting IV fluids and IV antibiotics at the time of my visit. Spiked temperature 100.6. The patient underwent intravenous pyelogram, results available at the time of my dictation, negative intravenous urogram. Urology input noted and appreciated. We will continue current pain medication. Continue to follow results of septic workup, continue to follow infectious disease input and recommendation. Anticipate discharge home in the next 24-48 hours if medically stable. Patient in agreement. 12/05 patient remains admitted to the medical floor, case discussed with the RN, patient is still spiking fever, maximum temperature 100.2. He is on broad- spectrum IV antibiotics. Results of IV pyelogram unremarkable, no acute findings. Infectious disease input noted and appreciated, recommended CT of the abdomen and pelvis for further evaluation of the possibility of abscess. Continue current pain medication, continue to trend WBC in a.m.. REVIEW OF SYSTEMS 12-point ROS reviewed with patient. All pertinent positives mentioned above. Otherwise negative, noncontributory, non-pertinent. PHYSICAL EXAM GENERAL APPEARANCE: The patient is awake, alert, and oriented, in no acute cardiopulmonary distress. NEUROLOGICAL: Cranial nerves II-XII grossly intact. Motor is 5/5 in bilateral upper and lower extremities proximal to distal. No sensory deficits. HEENT: Face is symmetric. Pupils are equal and reactive. Extraocular movements are intact. NECK: Supple. No JVD. No thyromegaly. No submental, submandibular, pre- /postauricular, occipital or supraclavicular lymphadenopathy. CHEST: Normal chest expansion. No Telemetry. LUNGS: Absence of any rales, rhonchi or any wheezing. CARDIOVASCULAR: Regular. S1 and S2 normal. No appreciable rubs, murmurs or gallops. ABDOMEN: Soft, nontender, and nondistended. There is no rebound, voluntary guarding, or rigidity. : Deferred. No Cole. EXTREMITIES: Non-edematous and not cyanotic. No clubbing. Good capillary refill. SKIN: No skin breakdown. Vital Signs (last 8hr) Date Time Temp Pulse Resp B/P (MAP) Pulse Ox O2 Delivery O2 Flow Rate FiO2 12/05/24 08:00 98.2 71 18 103/64 96 Room Air 12/05/24 04:00 102.0 84 17 110/70 99 Room Air 21 LABS: Laboratory: Test 12/05/24 11:25 12/05/24 04:40 12/04/24 04:42 Range/Units Whole Blood Glucose 90 70-110 MG/DL White Blood Count 4.7 #L 4.8-10.8 K/uL Red Blood Count 3.30 L 4.00-5.50 MIL/uL Hemoglobin 10.1 L 12.0-16.0 g/dL Hematocrit 30.3 L 36-48 % Mean Corpuscular Volume 91.8 79-99 fL Mean Corpuscular Hemoglobin 30.6 27.0-33.0 pg Mean Corpuscular Hemoglobin Concent 33.3 32.0-36.0 g/dL Red Cell Distribution Width 12.8 11.0-15.5 % Platelet Count 183 130-400 K/uL Mean Platelet Volume 9.8 7.5-10.5 fL Nucleated Red Blood Cells 0.0 0.0-0.19 % Sodium Level 137 136-145 mmol/L Potassium Level 3.4 L 3.5-5.1 mmol/L Chloride Level 104 101-111 mmol/L Carbon Dioxide Level 23 21-32 mmol/L Blood Urea Nitrogen 5 L 7-18 mg/dL Creatinine 0.7 0.5-1.0 mg/dL Glomerular Filtration Rate Calc 120 >90 mL/min Random Glucose 106 H 70-105 mg/dL Total Calcium 8.1 L 8.5-10.1 mg/dL Magnesium Level 1.80 1.80-2.40 mg/dL Total Bilirubin 1.6 H 0.2-1.0 mg/dL Aspartate Amino Transf (AST/SGOT) 98 H 10-37 U/L Alanine Aminotransferase (ALT/SGPT) 108 H 12-78 U/L Alkaline Phosphatase 66 50-136 U/L Total Protein 6.1 6.0-8.3 g/dL Albumin 2.5 L 3.5-5.0 g/dL Phosphorus Level 1.9 L 2.5-4.9 mg/dL Current Medications Medications (Trade) Dose Ordered Sig/Aiden Route PRN Reason Start Time Stop Time Status Last Admin Dose Admin Acetaminophen (TYLenol 325MG TAB) 650 mg Q6H PRN PO FEVER/MILD PAIN LEVEL 1-3 12/03/24 05:00 01/02/25 04:59 12/05/24 03:20 650 MG Acetaminophen (TYLenol 650MG SUPPOSITORY) 650 mg Q6H PRN RC FEVER / MILD PAIN 1-3 IF NPO 12/03/24 05:00 01/02/25 04:59 Acetaminophen/ Hydrocodone Bitart (NORco 5/325MG) 1 tab Q6H PRN PO MODERATE PAIN (4-6) 12/03/24 10:30 12/08/24 10:29 Acetaminophen/ Hydrocodone Bitart (NORco 5/325MG) FOR MODERATE PAIN SC... Q6H PRN PO PAIN 4-10 12/03/24 05:00 12/03/24 10:23 DC Ceftriaxone Sodium (ROCEphine 1G INJ) 1 gm Q24H IVPB 12/03/24 10:30 12/04/24 16:17 DC 12/04/24 09:53 1 GM Docusate Sodium (COLace 100MG CAP) 100 mg BID PRN PO CONSTIPATION 12/03/24 05:00 01/02/25 04:59 Insulin Human Regular (humuLIN R 100 UNIT/ML 3ML) INSULIN SLIDING SCAL... Q6H6 SQ 12/03/24 06:00 12/03/24 16:30 DC Ketorolac Tromethamine (toRADol) 30 mg Q6H PRN IVP SEVERE PAIN (7-10) 12/03/24 05:00 12/03/24 04:53 DC Labetalol HCl (TRANdate 20MG SYG) 10 mg Q2H PRN IV SBP GREATER THAN 160 12/03/24 05:00 01/02/25 04:59 Lactated Ringer's 1,000 ml @ 75 mls/hr [id number] IV 12/03/24 05:00 12/03/24 05:29 DC 12/03/24 05:16 75 MLS/HR Lactated Ringer's 1,000 ml @ 75 mls/hr [id number] IV 12/03/24 05:30 01/02/25 05:29 12/04/24 14:50 150 MLS/HR Lactated Ringer's (Lactated Ringers 1000ml) 1,000 ml BOLUS STAT IV 12/03/24 04:07 12/03/24 04:11 DC 12/03/24 04:36 1,000 ML Lactulose (Constulose 20gm/ 30ml Udcup) 20 gm Q6H PRN PO CONSTIPATION 12/03/24 05:00 01/02/25 04:59 Magnesium Sulfate 50 ml @ 0 mls/hr PROTOCOL IV 12/03/24 16:00 01/02/25 15:59 12/05/24 06:55 25 MLS/HR Morphine Sulfate (morPHINE 2MG SYG) 2 mg Q8H PRN IVP SEVERE PAIN (7-10) 12/03/24 05:00 12/10/24 04:59 Ondansetron HCl (zoFRAN 4MG INJ) 4 mg Q6H PRN IVP NAUSEA/VOMITING 12/03/24 05:00 01/02/25 04:59 Piperacillin Sod/ Tazobactam Sod (Zosyn 3.375gm+NS 50ml) 3.375 gm Q8H IV 12/04/24 16:30 12/14/24 16:29 12/05/24 09:29 3.375 GM Piperacillin Sod/ Tazobactam Sod (Zosyn 3.375gm+NS 50ml) 3.375 gm Q8H IVPB 12/03/24 11:00 12/03/24 10:20 DC Sodium Chloride (NS 50ml) 50 ml AD IV 12/03/24 11:00 12/03/24 10:21 DC Tamsulosin HCl (FloMAX) 0.4 mg DAILY PO 12/03/24 05:00 01/02/25 04:59 12/05/24 09:28 0.4 MG Temazepam (restORIL 15 MG CAP) 15 mg HS PRN PO INSOMNIA/SLEEP 12/03/24 05:00 01/02/25 04:59 DIAGNOSTICS / RADIOLOGY: [ ] ASSESSMENT: Severe Sepsis, POA Hypotension, in need of multiple boluses and Midodrine Acute complicated cystitis, POA 0.2 cm obstructive calculus at the left vesicoureteral junction with: -mild proximal hydroureteronephrosis -perinephric inflammatory changes per CT on 12/03/2024 Punctate nonobstructive calculus at the right renal lower pole, per CT on 12/03/2024 Pyelonephritis, POA Lactic acidemia, POA Acute dehydration, POA/ketonuria, POA Acute febrile illness, POA Hepatomegaly, mild to moderate, per CT on 12/03/2024 Uncomplicated colonic diverticula, per CT on 12/03/2024 Hyperglycemia Transaminitis Hypoalbuminemia PLAN: patient remains admitted to the medical floor, case discussed with the RN, patient is still spiking fever, maximum temperature 100.2. He is on broad- spectrum IV antibiotics. Results of IV pyelogram unremarkable, no acute findings. Infectious disease input noted and appreciated, recommended CT of the abdomen and pelvis for further evaluation of the possibility of abscess. Continue current pain medication, continue to trend WBC in a.m.. NEURO: Minimize central acting medications as possible. Fall Precautions. Well lighted room through the day and minimize interruptions through the night to prevent acute delirium. PULMONARY: Supplemental 02 as needed BiPAP as necessary, for respiratory distress Titrate Fio2 to keep Spo2 > or = 90% DuoNebs and CPT as needed IS hourly while awake for pulmonary hygiene prn Out of bed to chair as tolerated Maintain aspiration precautions at all times CARDIOVASCULAR: Follow hemodynamics. Vital signs per facility protocol GI & NUTRITION: Continue nutritional support Aspirations precautions Prokinetic agents and laxatives as needed KIDNEYS & ELECTROLYTES: Strict monitoring of intake and output Daily weights Avoid nephrotoxic agents Monitor electrolytes and replace as needed Goal urine output of 30mL/hr or 0.5mL/kg/hr Medications to be dosed according to renal function. Avoid contrast if possible ENDOCRINE: Maintain blood glucose between 100-180 at all times. Insulin sliding scale for blood glucose management Hypoglycemia and hyperglycemia protocol in place INFECTIOUS DISEASE: Trend temperature, WBC and procalcitonin level Follow cultures, deescalate antibiotics as soon as possible. Panculture if new onset fever HEMATOLOGY & COAGULATION: Monitor H&H. Keep Hgb > 7 Transfuse 1 unit of PRBC for Hgb < 7 Transfuse 1 pack of platelets of platelets < 20, 000 Watch for any signs and symptoms of bleeding SKIN: Pressure ulcer prevention per facility protocol Specialty mattress as needed ORTHO/REHAB Continue PT/OT PRN: MEDICATIONS Tylenol 650 mg po every 4 hrs for fever zofran 4 mg IV every 6 hrs for n/v Hydralazine 5 mg IV every 4 hrs systolic pressure > 160 bowel regiment: lactulose 20 gm PO BID PRN constipation Supportive measures: Continue GI and DVT prophylaxis All questions answered time spent: > 35 min RUSS DIAZ MD Dec 05, 2024 11:32
--- NOTE | 2024-12-05 12:03 | HMCIMG ---
CT ABDOMEN/PELVIS W/WO CONTRAS REASON: sepsis COMPARISON: None. FINDINGS: Lung bases are clear. There are no focal liver lesions. There are normal-appearing kidneys.. Spleen and pancreas appear unremarkable. The gallbladder. No gallstones but there is pericholecystic edema. On the ultrasound the gallbladder wall is thickened. Bowel loops appear unremarkable. This includes normal appearance of the appendix There is no evidence of free fluid or intraperitoneal air. There are no focal fluid collections. Aorta and retroperitoneum appear normal as do pelvic soft tissue structures. The anterior abdominal wall is intact. Osseous structures appear unremarkable. The [employer] structures appears to be normal. There is no mass or free fluid within the pelvis. IMPRESSION: 1. The gallbladder has pericholecystic edema with no gallstone identified. This is seen on the ultrasound to have acute cholecystitis. This finding is suggesting acalculous cholecystitis.. CT was performed with one or more following dose reduction techniques: automated exposure control, adjustment of the mA and kv according to patient's size, or use of a iterative reconstruction technique.
--- NOTE | 2024-12-05 13:19 | PN ---
INFECTIOUS DISEASE PROGRESS NOTE Date of Service: Dec 05, 2024 SUBJECTIVE: This 29 year old female patient continues to have fevers over night. No chest pain or shortness of breath. Patient does continue on zosyn. Results of IV pyelogram were unremarkable. At this time we will order a CT of abdomen and pelvis with and without contrast. We will follow with results. We continue to follow patient. PHYSICAL EXAM EYES: Anicteric. Pupils equal and reactive. HENT: No oral thrush seen, moist Oral mucosa NECK: Supple, no JVD or thyromegaly. LUNGS: Good air entry. No rales, no rhonchi. CARDIOVASCULAR: S1, S2 regular. No murmur heard. ABDOMEN: Soft, non tender, bowel sounds present, no organomegaly CENTRAL NERVOUS SYSTEM: Awake, alert, oriented x 3. No focal deficits. SKIN: No rashes, no swelling. LYMPHATICS: No peripheral lymphadenopathy MUSCULOSKELETAL: No joint swelling, erythema or tenderness. EXTREMITIES: No cyanosis or clubbing BACK: No deformity, no pressure ulcer. Vital Sign (Last 12 Hours) 12/05/24 12/05/24 12/05/24 12/05/24 03:20 04:00 08:00 11:58 Temp 102.0 102.0 98.2 97.9 Pulse 84 71 69 Resp 17 18 18 B/P (MAP) 110/70 103/64 108/62 Pulse Ox 99 96 95 O2 Delivery Room Air Room Air Room Air FiO2 21 Intake & Output (last 24hrs) 12/04/24 12/04/24 12/05/24 15:00 23:00 07:00 Output Total 800 ml Balance -800 ml LABS: Laboratory: Test 12/05/24 11:25 12/05/24 04:40 12/04/24 04:42 Range/Units Whole Blood Glucose 90 70-110 MG/DL White Blood Count 4.7 #L 4.8-10.8 K/uL Red Blood Count 3.30 L 4.00-5.50 MIL/uL Hemoglobin 10.1 L 12.0-16.0 g/dL Hematocrit 30.3 L 36-48 % Mean Corpuscular Volume 91.8 79-99 fL Mean Corpuscular Hemoglobin 30.6 27.0-33.0 pg Mean Corpuscular Hemoglobin Concent 33.3 32.0-36.0 g/dL Red Cell Distribution Width 12.8 11.0-15.5 % Platelet Count 183 130-400 K/uL Mean Platelet Volume 9.8 7.5-10.5 fL Nucleated Red Blood Cells 0.0 0.0-0.19 % Sodium Level 137 136-145 mmol/L Potassium Level 3.4 L 3.5-5.1 mmol/L Chloride Level 104 101-111 mmol/L Carbon Dioxide Level 23 21-32 mmol/L Blood Urea Nitrogen 5 L 7-18 mg/dL Creatinine 0.7 0.5-1.0 mg/dL Glomerular Filtration Rate Calc 120 >90 mL/min Random Glucose 106 H 70-105 mg/dL Total Calcium 8.1 L 8.5-10.1 mg/dL Magnesium Level 1.80 1.80-2.40 mg/dL Total Bilirubin 1.6 H 0.2-1.0 mg/dL Aspartate Amino Transf (AST/SGOT) 98 H 10-37 U/L Alanine Aminotransferase (ALT/SGPT) 108 H 12-78 U/L Alkaline Phosphatase 66 50-136 U/L Total Protein 6.1 6.0-8.3 g/dL Albumin 2.5 L 3.5-5.0 g/dL Phosphorus Level 1.9 L 2.5-4.9 mg/dL DIAGNOSTICS / RADIOLOGY: REASON: LEFT RENAL CALCULI ORDERING PHYSICIAN: TAMMY TITUS MD PROCEDURE: IVP - IVP W/WO TOMOGRAMS IVP W/WO TOMOGRAMS HISTORY: Postmenopausal CLINICAL HISTORY: Left renal calculus. COMPARISON: None. TECHNIQUES: Intravenous excretory urogram was performed with tomography. FINDINGS: A programmer operator numerical control film of the abdomen shows no soft tissue abnormality and no pathologic calcification overlying the renal contour or bladder noted. Following intravenous infusion of 100 cc of Omnipaque 350 contrast material, there is prompt symmetrical concentration as noted by nephrograms. No filling defect of the collecting systems are noted. There is normal and symmetrical filling of the calyceal system. Subsequent films demonstrate that the kidneys are of normal size and contour bilaterally. The calyceal system and ureters are in their usual position and show no signs of obstruction or intraluminal defects. The post void film shows normal emptying of the collecting system including the urinary bladder. IMPRESSION: Negative intravenous urogram. REASON: transaminitis, hepatomegaly ORDERING PHYSICIAN: RUSS DIAZ MD PROCEDURE: [id number] - US ABDOMINAL RUQ\LTD CLINICAL INFORMATION Hepatomegaly, elevated liver enzymes COMPARISON CT abdomen and pelvis 12/03/2024 TECHNIQUE Transabdominal imaging of the right upper quadrant. FINDINGS LIVER Echogenicity: Normal. Size and Contour: Prominent size of the right hepatic lobe. Portal vein: Patent with hepatopetal flow and a normal waveform. BILIARY Ducts: Normal caliber intra and extrahepatic ducts. Gallbladder: Gallbladder wall thickening measuring up to 7 mm. RIGHT KIDNEY Echogenicity: Normal Size and Contour: Normal Stones: None Hydronephrosis: None. Cysts: None. Pancreas: Limited visualization. Other: No ascites or pleural effusion. MEASUREMENTS (cm) Liver length: 7 cm (normal variable, typically <15-16 cm in mid clavicular line) Common duct: 0.4 cm (normal variable by age and gallbladder status, typically <6 mm) Right Kidney (LxHxW): 11 cm IMPRESSION Prominent size of the right hepatic lobe. No evidence of hepatic steatosis or other parenchymal abnormality. Gallbladder wall thickening measuring up to 7 mm. No cholelithiasis or pericholecystic fluid. Findings are nonspecific and may be related to underlying liver disease. /[place]astern REASON: L flank pain ORDERING PHYSICIAN: CONNIE FLORES PROCEDURE: ABD PEL WO - CT ABDOMEN/PELVIS W/O CONTRAST EXAM: CT Abdomen and Pelvis without IV contrast CLINICAL HISTORY: Left flank pain. TECHNIQUE: Thin collimated axial CT images of the abdomen and pelvis were obtained with sagittal and coronal reformatted images also submitted. CT scan is done according to ALARA (As Low As Reasonably Achievable). CONTRAST: None. COMPARISON: None. FINDINGS: The included lungs are clear. Mild to moderate hepatomegaly measures up to 22 cm craniocaudally. No focal hepatic abnormality. No focal abnormality within the gallbladder, pancreas, spleen, or adrenals. 0.2 cm obstructive calculus at the left vesicoureteral junction with mild proximal hydroureteronephrosis and perinephric inflammatory changes. There is a punctate nonobstructive calculus at the right renal lower pole. Grossly unremarkable urinary bladder. The uterus and ovaries are within normal limits. No obvious bowel wall thickening, dilatation, or obstruction. Unremarkable appendix. Uncomplicated colonic diverticula. Limited evaluation of the abdominal vessels due to the lack of intravenous contrast. No abdominal aortic aneurysm is evident. No pathological lymphadenopathy in the abdomen or pelvis. No ascites or pneumoperitoneum is evident. No acute bony abnormality is evident. Mild levocurvature of the thoracolumbar spine. IMPRESSIONS: 0.2 cm obstructive calculus at the left vesicoureteral junction with mild proximal hydroureteronephrosis and perinephric inflammatory changes. There is a punctate nonobstructive calculus at the right renal lower pole. Mild to moderate hepatomegaly without focal hepatic abnormality. Uncomplicated colonic diverticula. /[place]astern ASSESSMENT: * Possible gram-negative sepsis. * Left-sided hydronephrosis. * UTI. * Abdominal pain. PLAN: * D/C ceftriaxone. * Follow up cultures. * Continue IV fluids. * Continue pain management. * Continue antiemetic. * Continue Flomax. * Monitor electrolyte and correct as needed. * Start Zosyn * Follow urologist recommendations. * Obtain CT of abdomen and pelvis with / without contrast. This case has been discussed with my supervising physician Dr. Spears. The case has been discussed and agreed upon. ROSALVA CORDERO [facility] Dec 05, 2024 13:19
--- NOTE | 2024-12-05 14:19 | CONS ---
GASTROENTEROLOGY CONSULTATION NOTE Date of Consultation: Dec 05, 2024 Time of Consultation: 14:14 History of Present Illness: [This is a 29-year-old female patient with no past medical history who presented to the emergency room with complaints of lower back pain. She was found to have a UTI and is being treated with Bactrim. Admission VS of HR 161 and Temp 105.3 F. On admission, her WBC 10.7, hemoglobin 10.5, platelets 183. Chemistry significant for potassium of 3.4, BUN of five, calcium 8.1, total bilirubin 1.6, AST 98, ALT 108, alkaline phosphatase of 66, albumin 2.5. Lactic acid 2.2. Lipase normal. Acute hepatitis panel is negative. Brucella negative, para typhoid panel negative, and influenza panel negative. She has negative COVID. Typhoid H and O antibodies negative. CT abdomen and pelvis without contrast: 0.2 cm obstructive calculus at the left vesicoureteral junction with mild proximal hydroureteronephrosis and perinephric inflammatory changes. There is a punctate nonobstructive calculus at the right renal lower pole. Mild to moderate hepatomegaly without focal hepatic abnormality. Uncomplicated colonic diverticula. Were were consulted for elevated liver enzymes. On exam, patient's VSS. Respirations are unlabored with BBS clear. She is in no acute distress. She denies having any abdominal pain, nausea, vomiting, She has positive left cva tenderness. Informed we will continue to follow and trend liver enzymes. Recommend she f/u at our office as outpatient once discharge to further evaluate. She and spouse at bedside V/U and agreement. ] Review of Systems: CONSTITUTIONAL: No malaise or change in sensation of wellbeing. ENMT: No rhinorrhea, otorrhea, sinus pain, ear ache. CARDIOVASCULAR: No angina, palpitations, orthopnea or paroxysmal dyspnea. RESPIRATORY: No SOB. GASTROINTESTINAL: No abdominal pain, nausea, vomiting, diarrhea, hematemesis, melena or change in the patient's habitual bowel movements consistency/number. GENITOURINARY: No dysuria, hematuria or change in bladder continence. MUSCULOSKELETAL: No new muscle pain or decrease in muscular strength. No new joint swelling, redness or tenderness. SKIN: No new rash. Past Medical History: [Denied PAST SURGICAL HISTORY: None PAST SOCIAL HISTORY: Denied alcohol, tobacco, illicit drug use FAMILY HISTORY: Noncontributory Coded Allergies: No Known Allergies (Unverified Allergy, Unknown, 12/03/24) Coded Allergies: No Known Allergies (Unverified Allergy, Unknown, 12/03/24) Physical Exam: GEN: Awake, alert, oriented in person, time and place, and in no acute distress. HEENT: No rhinorrhea. Oral pharyngeal mucosa is pink, moist and within normal limits. CHEST: Inspection, palpation of the chest were unremarkable. Lung auscultation revealed normal breath sounds bilaterally. CARDIAC: Heart sounds are regular. Normal S1, S2. ABD: Soft, non-tender and not distended. No peritoneal signs on palpation. No organomegaly. Normal bowel sounds. Positive left CVA tenderness EXT: No cyanosis or clubbing. No edema. SKIN: Intact. No rashes. JOINTS: No evidence of synovitis or acute arthritis. NEURO: Alert and oriented to name, place and person. Cranial nerve examination is unremarkable. No focal motor deficits. Normal speech. Strength is normal. Vital Sign (Last 24 Hours) 12/04/24 12/05/24 12/05/24 20:00 04:00 11:58 Temp 97.9 Pulse 69 Resp 18 B/P (MAP) 108/62 Pulse Ox 95 O2 Delivery Room Air O2 Flow Rate 0 FiO2 21 Intake & Output (last 24hrs) 12/04/24 12/04/24 12/05/24 15:00 23:00 07:00 Output Total 800 ml Balance -800 ml Laboratory: [ ] Laboratory: Test 12/05/24 11:25 12/05/24 04:40 12/04/24 04:42 Range/Units Whole Blood Glucose 90 70-110 MG/DL White Blood Count 4.7 #L 4.8-10.8 K/uL Red Blood Count 3.30 L 4.00-5.50 MIL/uL Hemoglobin 10.1 L 12.0-16.0 g/dL Hematocrit 30.3 L 36-48 % Mean Corpuscular Volume 91.8 79-99 fL Mean Corpuscular Hemoglobin 30.6 27.0-33.0 pg Mean Corpuscular Hemoglobin Concent 33.3 32.0-36.0 g/dL Red Cell Distribution Width 12.8 11.0-15.5 % Platelet Count 183 130-400 K/uL Mean Platelet Volume 9.8 7.5-10.5 fL Nucleated Red Blood Cells 0.0 0.0-0.19 % Sodium Level 137 136-145 mmol/L Potassium Level 3.4 L 3.5-5.1 mmol/L Chloride Level 104 101-111 mmol/L Carbon Dioxide Level 23 21-32 mmol/L Blood Urea Nitrogen 5 L 7-18 mg/dL Creatinine 0.7 0.5-1.0 mg/dL Glomerular Filtration Rate Calc 120 >90 mL/min Random Glucose 106 H 70-105 mg/dL Total Calcium 8.1 L 8.5-10.1 mg/dL Magnesium Level 1.80 1.80-2.40 mg/dL Total Bilirubin 1.6 H 0.2-1.0 mg/dL Aspartate Amino Transf (AST/SGOT) 98 H 10-37 U/L Alanine Aminotransferase (ALT/SGPT) 108 H 12-78 U/L Alkaline Phosphatase 66 50-136 U/L Total Protein 6.1 6.0-8.3 g/dL Albumin 2.5 L 3.5-5.0 g/dL Phosphorus Level 1.9 L 2.5-4.9 mg/dL Current Medications Medications (Trade) Dose Ordered Sig/Aiden Route PRN Reason Start Time Stop Time Status Last Admin Dose Admin Acetaminophen (TYLenol 325MG TAB) 650 mg Q6H PRN PO FEVER/MILD PAIN LEVEL 1-3 12/03/24 05:00 01/02/25 04:59 12/05/24 03:20 650 MG Acetaminophen (TYLenol 650MG SUPPOSITORY) 650 mg Q6H PRN RC FEVER / MILD PAIN 1-3 IF NPO 12/03/24 05:00 01/02/25 04:59 Acetaminophen/ Hydrocodone Bitart (NORco 5/325MG) 1 tab Q6H PRN PO MODERATE PAIN (4-6) 12/03/24 10:30 12/08/24 10:29 Acetaminophen/ Hydrocodone Bitart (NORco 5/325MG) FOR MODERATE PAIN SC... Q6H PRN PO PAIN 4-10 12/03/24 05:00 12/03/24 10:23 DC Ceftriaxone Sodium (ROCEphine 1G INJ) 1 gm Q24H IVPB 12/03/24 10:30 12/04/24 16:17 DC 12/04/24 09:53 1 GM Docusate Sodium (COLace 100MG CAP) 100 mg BID PRN PO CONSTIPATION 12/03/24 05:00 01/02/25 04:59 Insulin Human Regular (humuLIN R 100 UNIT/ML 3ML) INSULIN SLIDING SCAL... Q6H6 SQ 12/03/24 06:00 12/03/24 16:30 DC Ketorolac Tromethamine (toRADol) 30 mg Q6H PRN IVP SEVERE PAIN (7-10) 12/03/24 05:00 12/03/24 04:53 DC Labetalol HCl (TRANdate 20MG SYG) 10 mg Q2H PRN IV SBP GREATER THAN 160 12/03/24 05:00 01/02/25 04:59 Lactated Ringer's 1,000 ml @ 75 mls/hr [id number] IV 12/03/24 05:00 12/03/24 05:29 DC 12/03/24 05:16 75 MLS/HR Lactated Ringer's 1,000 ml @ 75 mls/hr [id number] IV 12/03/24 05:30 01/02/25 05:29 12/04/24 14:50 150 MLS/HR Lactated Ringer's (Lactated Ringers 1000ml) 1,000 ml BOLUS STAT IV 12/03/24 04:07 12/03/24 04:11 DC 12/03/24 04:36 1,000 ML Lactulose (Constulose 20gm/ 30ml Udcup) 20 gm Q6H PRN PO CONSTIPATION 12/03/24 05:00 01/02/25 04:59 Magnesium Sulfate 50 ml @ 0 mls/hr PROTOCOL IV 12/03/24 16:00 01/02/25 15:59 12/05/24 06:55 25 MLS/HR Morphine Sulfate (morPHINE 2MG SYG) 2 mg Q8H PRN IVP SEVERE PAIN (7-10) 12/03/24 05:00 12/10/24 04:59 Ondansetron HCl (zoFRAN 4MG INJ) 4 mg Q6H PRN IVP NAUSEA/VOMITING 12/03/24 05:00 01/02/25 04:59 Piperacillin Sod/ Tazobactam Sod (Zosyn 3.375gm+NS 50ml) 3.375 gm Q8H IV 12/04/24 16:30 12/14/24 16:29 12/05/24 09:29 3.375 GM Piperacillin Sod/ Tazobactam Sod (Zosyn 3.375gm+NS 50ml) 3.375 gm Q8H IVPB 12/03/24 11:00 12/03/24 10:20 DC Sodium Chloride (NS 50ml) 50 ml AD IV 12/03/24 11:00 12/03/24 10:21 DC Tamsulosin HCl (FloMAX) 0.4 mg DAILY PO 12/03/24 05:00 01/02/25 04:59 12/05/24 09:28 0.4 MG Temazepam (restORIL 15 MG CAP) 15 mg HS PRN PO INSOMNIA/SLEEP 12/03/24 05:00 01/02/25 04:59 Diagnostics / Radiology: [COPY/PASTE HERE IF NO REPORTS PLEASE DELETE SECTION] Assessment: [ Transaminitis Hyperbilirubinemia Hepatomegaly UTI] Plan: Case discuss with Dr. Salter [NO GI endoscopic intervention at this time LFts are trending down LIver serologies ordered Will continue to monitor Thank you for this consult. ] GAIL PRITCHETT NP Dec 05, 2024 14:19
--- NOTE | 2024-12-05 16:25 | CONS ---
CONSULT NOTE: Consulting physician: Dr. Hays Consulting service: General surgery Reason for consultation: Acalculous cholecystitis History of present illness: This is a 29-year-old female consulted to surgery after presenting to the hospital with concerns of lower back pain. Patient reports urinary tract symptoms one week prior confirmed with a UA. However imaging performed upon admission concerning for possible acalculous cholecystitis which is why Surgical team was consulted. Patient currently pending HIDA scan. WBCs 4.7 with a hemoglobin of 10.1. Bilirubin elevated 1.6. On physical exam patient's abdominal pain has improved. Patient currently NPO. Patient voicing hesitancy to move forward with surgery if deemed necessary Medical history: None Surgical history: None Review of systems: General: No Fever, No Chills, No Night Sweats, No Fatigue, No Malaise, No Appetite, No Other HEENT: No Head Aches, No Visual Changes, No Eye Pain, No Ear Pain, No Dysphasia, No Sinus Congestion, No Post Nasal Drip, No Sore Throat, No Other Pulmonary: No Dyspnea, No Cough, No Pleuritic Chest Pain, No Other Cardiovascular: No: Chest Pain, Palpitations, Orthopnea, Paroxysmal No Dyspnea, Edema, Lt Headedness, Other Gastrointestinal: No: Nausea, Vomiting, Diarrhea, Constipation, Melena, Hematochezia, Other Genitourinary: No Dysuria, No Frequency, No Incontinence, No Hematuria, No Retention, No Other Musculoskeletal: No: other, neck pain, shoulder pain, arm pain, back pain, hand pain, leg pain, foot pain Skin: No Urticaria, No Rash, No Other Neurological: No: Weakness, Numbness, Incoordination, Change in speech, Confusion, Seizures, Other Physical exam: General: Awake alert and oriented Heart: Regular rate and rhythm} Lungs: Clear to auscultation no distress Abdomen: [Soft, nontender, nondistended Assessment: This is a 29-year-old female with concerns of possible acalculous cholecystitis Plan: At this point in time we will await HIDA scan findings Patient to remain NPO until imaging complete Patient to be made NPO at midnight in case surgical intervention to be scheduled for tomorrow Patient to continue with the IV fluids and IV antibiotics Dr. Britton updated on patient's status and surgical team to follow patient closely SEVERO ROUSE Jr. Dec 05, 2024 16:25
[2024-12-05] MEDS ORDERED: PoTASSium chl 10% ELIXIR 20MEQ 20 MEQ/15 ML UDCUP PO PRN (19:30)
--- NOTE | 2024-12-05 23:22 | HMCIMG ---
Examination Hepatobiliary study History evaluate for cholecystitis (Hx) / evaluate for cholecystitis, Dynamic (DICOM Hx) (DICOM Hx) Technique Tc-99m mebrofenin were administered intravenously followed by acquisition of planar images of the abdomen. Findings Following administration of radiotracer, there is prompt appearance of normal hepatic contours, followed by appearance of activity in unremarkable appearing bile ducts. There is prompt filling of the gallbladder. The study is negative for acute cholecystitis. IMPRESSION: Negative HIDA study. No evidence of cholecystitis. /Shelly
[2024-12-06] VITALS (9 sets, daily range): BP systolic 93–120; BP diastolic 55–71; PULSE 67–87; RESP 17–20; TEMP 98–102.7; O2SAT 96
[2024-12-06 08:24] LABS: NUCLEATED RED BLOOD CELLS 0.0 % (0.0-0.19); PLATELET COUNT (AUTO) 196.0 K/uL (130-400); RED BLOOD CELL COUNT(AUTO) 3.22 MIL/uL (4.00-5.50); RED CELL DISTRIBUTION WIDTH 12.9 % (11.0-15.5); WHITE BLOOD COUNT (AUTO) 3.8 K/uL (4.8-10.8)
[2024-12-06 08:40] LABS: CREATININE 0.6 mg/dL (0.5-1.0); GLOMERULAR FILTR. RATE CALC 125.0 mL/min (>90); GLUCOSE,RANDOM 92.0 mg/dL (70-105); SODIUM SERUM 138.0 mmol/L (136-145); UREA NITROGEN, BLOOD 7.0 mg/dL (7-18)
[2024-12-06 08:44] LABS: ASPARTATE AMINOTRANSFERASE 105.0 U/L (10-37); TOTAL PROTEIN, SERUM 5.8 g/dL (6.0-8.3)
[2024-12-06] MEDS: PoTASSium chloRIDE 20MEQ ER 20 MEQ ERTAB PO PRN (08:46)
--- NOTE | 2024-12-06 10:09 | PN ---
[facility] PROGRESS NOTE Date of Service: Dec 06, 2024 Time of Service: 10:07 SUBJECTIVE: [ ] 12/04 patient is seen and examined at bedside, she remains admitted to the medical floor, case discussed with the RN, no acute events overnight, patient getting IV fluids and IV antibiotics at the time of my visit. Spiked temperature 100.6. The patient underwent intravenous pyelogram, results available at the time of my dictation, negative intravenous urogram. Urology input noted and appreciated. We will continue current pain medication. Continue to follow results of septic workup, continue to follow infectious disease input and recommendation. Anticipate discharge home in the next 24-48 hours if medically stable. Patient in agreement. 12/05 patient remains admitted to the medical floor, case discussed with the RN, patient is still spiking fever, maximum temperature 100.2. He is on broad- spectrum IV antibiotics. Results of IV pyelogram unremarkable, no acute findings. Infectious disease input noted and appreciated, recommended CT of the abdomen and pelvis for further evaluation of the possibility of abscess. Continue current pain medication, continue to trend WBC in a.m.. 12/06 the patient has been seen and examined at bedside, case discussed with the RN, no acute events overnight, the patient has remained afebrile, she is alert oriented x3, getting IV fluids, no nausea, no vomiting, no abdominal discomfort, HIDA scan results reviewed, discussed with the patient, negative for acute cholecystitis. Results of urine culture positive for E coli. Liver enzymes mildly elevated today, GI input noted and appreciated, we will continue to trend liver enzymes in the next 24 hours. Continue to follow GI and ID input and recommendation. Continue to follow surgical input and recommendation. Change Zosyn IV to Rocephin IV. REVIEW OF SYSTEMS 12-point ROS reviewed with patient. All pertinent positives mentioned above. Otherwise negative, noncontributory, non-pertinent. PHYSICAL EXAM GENERAL APPEARANCE: The patient is awake, alert, and oriented, in no acute cardiopulmonary distress. NEUROLOGICAL: Cranial nerves II-XII grossly intact. Motor is 5/5 in bilateral upper and lower extremities proximal to distal. No sensory deficits. HEENT: Face is symmetric. Pupils are equal and reactive. Extraocular movements are intact. NECK: Supple. No JVD. No thyromegaly. No submental, submandibular, pre- /postauricular, occipital or supraclavicular lymphadenopathy. CHEST: Normal chest expansion. No Telemetry. LUNGS: Absence of any rales, rhonchi or any wheezing. CARDIOVASCULAR: Regular. S1 and S2 normal. No appreciable rubs, murmurs or gallops. ABDOMEN: Soft, nontender, and nondistended. There is no rebound, voluntary guarding, or rigidity. : Deferred. No Cole. EXTREMITIES: Non-edematous and not cyanotic. No clubbing. Good capillary refill. SKIN: No skin breakdown. Vital Signs (last 8hr) Date Time Temp Pulse Resp B/P (MAP) Pulse Ox O2 Delivery O2 Flow Rate FiO2 12/06/24 09:30 96 Room Air* 0 21 12/06/24 08:00 99.1 78 18 115/70 96 Room Air 12/06/24 04:00 98.8 73 17 111/71 97 Room Air 21 LABS: Laboratory: Test 12/06/24 08:15 12/05/24 11:25 Range/Units White Blood Count 3.8 L 4.8-10.8 K/uL Red Blood Count 3.22 L 4.00-5.50 MIL/uL Hemoglobin 10.1 L 12.0-16.0 g/dL Hematocrit 29.6 L 36-48 % Mean Corpuscular Volume 91.9 79-99 fL Mean Corpuscular Hemoglobin 31.4 27.0-33.0 pg Mean Corpuscular Hemoglobin Concent 34.1 32.0-36.0 g/dL Red Cell Distribution Width 12.9 11.0-15.5 % Platelet Count 196 130-400 K/uL Mean Platelet Volume 9.3 7.5-10.5 fL Nucleated Red Blood Cells 0.0 0.0-0.19 % Sodium Level 138 136-145 mmol/L Potassium Level 3.5 3.5-5.1 mmol/L Chloride Level 104 101-111 mmol/L Carbon Dioxide Level 26 21-32 mmol/L Blood Urea Nitrogen 7 7-18 mg/dL Creatinine 0.6 0.5-1.0 mg/dL Glomerular Filtration Rate Calc 125 >90 mL/min Random Glucose 92 70-105 mg/dL Total Calcium 7.9 L 8.5-10.1 mg/dL Magnesium Level 1.90 1.80-2.40 mg/dL Total Bilirubin 0.8 0.2-1.0 mg/dL Aspartate Amino Transf (AST/SGOT) 105 H 10-37 U/L Alanine Aminotransferase (ALT/SGPT) 149 H 12-78 U/L Alkaline Phosphatase 78 50-136 U/L Total Protein 5.8 L 6.0-8.3 g/dL Albumin 2.4 L 3.5-5.0 g/dL Whole Blood Glucose 90 70-110 MG/DL Current Medications Medications (Trade) Dose Ordered Sig/Aiden Route PRN Reason Start Time Stop Time Status Last Admin Dose Admin Acetaminophen (TYLenol 325MG TAB) 650 mg Q6H PRN PO FEVER/MILD PAIN LEVEL 1-3 12/03/24 05:00 01/02/25 04:59 12/05/24 16:45 650 MG Acetaminophen (TYLenol 650MG SUPPOSITORY) 650 mg Q6H PRN RC FEVER / MILD PAIN 1-3 IF NPO 12/03/24 05:00 01/02/25 04:59 Acetaminophen/ Hydrocodone Bitart (NORco 5/325MG) 1 tab Q6H PRN PO MODERATE PAIN (4-6) 12/03/24 10:30 12/08/24 10:29 Acetaminophen/ Hydrocodone Bitart (NORco 5/325MG) FOR MODERATE PAIN SC... Q6H PRN PO PAIN 4-10 12/03/24 05:00 12/03/24 10:23 DC Ceftriaxone Sodium (ROCEphine 1G INJ) 1 gm Q24H IVPB 12/03/24 10:30 12/04/24 16:17 DC 12/04/24 09:53 1 GM Docusate Sodium (COLace 100MG CAP) 100 mg BID PRN PO CONSTIPATION 12/03/24 05:00 01/02/25 04:59 Insulin Human Regular (humuLIN R 100 UNIT/ML 3ML) INSULIN SLIDING SCAL... Q6H6 SQ 12/03/24 06:00 12/03/24 16:30 DC Ketorolac Tromethamine (toRADol) 30 mg Q6H PRN IVP SEVERE PAIN (7-10) 12/03/24 05:00 12/03/24 04:53 DC Labetalol HCl (TRANdate 20MG SYG) 10 mg Q2H PRN IV SBP GREATER THAN 160 12/03/24 05:00 01/02/25 04:59 Lactated Ringer's 1,000 ml @ 75 mls/hr [id number] IV 12/03/24 05:00 12/03/24 05:29 DC 12/03/24 05:16 75 MLS/HR Lactated Ringer's 1,000 ml @ 75 mls/hr [id number] IV 12/03/24 05:30 01/02/25 05:29 12/05/24 10:50 75 MLS/HR Lactated Ringer's (Lactated Ringers 1000ml) 1,000 ml BOLUS STAT IV 12/03/24 04:07 12/03/24 04:11 DC 12/03/24 04:36 1,000 ML Lactulose (Constulose 20gm/ 30ml Udcup) 20 gm Q6H PRN PO CONSTIPATION 12/03/24 05:00 01/02/25 04:59 Magnesium Sulfate 50 ml @ 0 mls/hr PROTOCOL IV 12/03/24 16:00 01/02/25 15:59 12/05/24 06:55 25 MLS/HR Morphine Sulfate (morPHINE 2MG SYG) 2 mg Q8H PRN IVP SEVERE PAIN (7-10) 12/03/24 05:00 12/10/24 04:59 Ondansetron HCl (zoFRAN 4MG INJ) 4 mg Q6H PRN IVP NAUSEA/VOMITING 12/03/24 05:00 01/02/25 04:59 Piperacillin Sod/ Tazobactam Sod (Zosyn 3.375gm+NS 50ml) 3.375 gm Q8H IV 12/04/24 16:30 12/14/24 16:29 12/06/24 08:46 3.375 GM Piperacillin Sod/ Tazobactam Sod (Zosyn 3.375gm+NS 50ml) 3.375 gm Q8H IVPB 12/03/24 11:00 12/03/24 10:20 DC Potassium Chloride 100 ml @ 100 mls/hr AD PRN IV POTASSIUM PROTOCOL 12/05/24 19:30 01/04/25 19:29 Potassium Chloride (K-Dur/Klor-Con 20meq) 20 meq AD PRN PO POTASSIUM PROTOCOL 12/05/24 19:30 01/04/25 19:29 12/06/24 08:46 20 MEQ Potassium Chloride (KCl 10% Elixir 20meq/15ml) 20 meq AD PRN PO POTASSIUM PROTOCOL 12/05/24 19:30 01/04/25 19:29 Sodium Chloride (NS 50ml) 50 ml AD IV 12/03/24 11:00 12/03/24 10:21 DC Tamsulosin HCl (FloMAX) 0.4 mg DAILY PO 12/03/24 05:00 01/02/25 04:59 12/06/24 08:45 0.4 MG Temazepam (restORIL 15 MG CAP) 15 mg HS PRN PO INSOMNIA/SLEEP 12/03/24 05:00 01/02/25 04:59 DIAGNOSTICS / RADIOLOGY: [ ] ASSESSMENT: Severe Sepsis, POA Hypotension, in need of multiple boluses and Midodrine Acute complicated cystitis, POA 0.2 cm obstructive calculus at the left vesicoureteral junction with: -mild proximal hydroureteronephrosis -perinephric inflammatory changes per CT on 12/03/2024 Punctate nonobstructive calculus at the right renal lower pole, per CT on 12/03/2024 Pyelonephritis, POA Lactic acidemia, POA Acute dehydration, POA/ketonuria, POA Acute febrile illness, POA Hepatomegaly, mild to moderate, per CT on 12/03/2024 Uncomplicated colonic diverticula, per CT on 12/03/2024 Hyperglycemia Transaminitis Hypoalbuminemia PLAN: the patient has been seen and examined at bedside, case discussed with the RN, no acute events overnight, the patient has remained afebrile, she is alert oriented x3, getting IV fluids, no nausea, no vomiting, no abdominal discomfort, HIDA scan results reviewed, discussed with the patient, negative for acute chol ecystitis. Results of urine culture positive for E coli. Liver enzymes mildly elevated today, GI input noted and appreciated, we will continue to trend liver enzymes in the next 24 hours. Continue to follow GI and ID input and recommendation. Continue to follow surgical input and recommendation. Change Zosyn IV to Rocephin IV. NEURO: Minimize central acting medications as possible. Fall Precautions. Well lighted room through the day and minimize interruptions through the night to prevent acute delirium. PULMONARY: Supplemental 02 as needed BiPAP as necessary, for respiratory distress Titrate Fio2 to keep Spo2 > or = 90% DuoNebs and CPT as needed IS hourly while awake for pulmonary hygiene prn Out of bed to chair as tolerated Maintain aspiration precautions at all times CARDIOVASCULAR: Follow hemodynamics. Vital signs per facility protocol GI & NUTRITION: Continue nutritional support Aspirations precautions Prokinetic agents and laxatives as needed KIDNEYS & ELECTROLYTES: Strict monitoring of intake and output Daily weights Avoid nephrotoxic agents Monitor electrolytes and replace as needed Goal urine output of 30mL/hr or 0.5mL/kg/hr Medications to be dosed according to renal function. Avoid contrast if possible ENDOCRINE: Maintain blood glucose between 100-180 at all times. Insulin sliding scale for blood glucose management Hypoglycemia and hyperglycemia protocol in place INFECTIOUS DISEASE: Trend temperature, WBC and procalcitonin level Follow cultures, deescalate antibiotics as soon as possible. Panculture if new onset fever HEMATOLOGY & COAGULATION: Monitor H&H. Keep Hgb > 7 Transfuse 1 unit of PRBC for Hgb < 7 Transfuse 1 pack of platelets of platelets < 20, 000 Watch for any signs and symptoms of bleeding SKIN: Pressure ulcer prevention per facility protocol Specialty mattress as needed ORTHO/REHAB Continue PT/OT PRN: MEDICATIONS Tylenol 650 mg po every 4 hrs for fever zofran 4 mg IV every 6 hrs for n/v Hydralazine 5 mg IV every 4 hrs systolic pressure > 160 bowel regiment: lactulose 20 gm PO BID PRN constipation Supportive measures: Continue GI and DVT prophylaxis All questions answered time spent: > 35 min RUSS DIAZ MD Dec 06, 2024 10:09
--- NOTE | 2024-12-06 10:44 | PN ---
This is a 29-year-old female consulted to surgery for concerns of acalculous cholecystitis Interval history: This 29-year-old female seen in her room resting HIDA scan performed negative for cholecystitis Patient tolerating diet No abdominal pain reported Labs and vitals unremarkable Physical exam General: Awake alert and oriented Heart: Regular rate and rhythm} Lungs: Clear to auscultation no distress Abdomen: [Soft, nontender, nondistended Assessment : This is a 29-year-old female with abdominal discomfort of unknown etiology Plan: From surgical standpoint no further intervention planned with negative HIDA scan If patient is able to tolerate diet and pain has improved patient will be cleared for discharge once cleared by medical team Dr. Norton to be updated in patient's status and surgical team to sign off at this time. Thank you Vitals/Labs Vital Signs Date Time Temp Pulse Resp B/P (MAP) Pulse Ox O2 Delivery O2 Flow Rate FiO2 12/06/24 09:30 96 Room Air* 0 21 12/06/24 08:00 99.1 78 18 115/70 Laboratory Tests 12/06/24 08:15 Medications Current Medications Acetaminophen 1,000 mg ONCE ONCE PO Last administered on 12/03/24at 01:54; Start 12/03/24 at 02:00; Stop 12/03/24 at 02:01; Status DC Ondansetron HCl 4 mg ONCE ONCE IVP Last administered on 12/03/24at 01:54; Start 12/03/24 at 02:00; Stop 12/03/24 at 02:01; Status DC Sodium Chloride 2,190 ml @ 730 mls/hr ONCE ONCE IV Last administered on 12/03/24at 01:54; Start 12/03/24 at 02:00; Stop 12/03/24 at 04:59; Status DC Ceftriaxone Sodium 1 gm ONCE ONCE IVPB Last administered on 12/03/24at 03:11; Start 12/03/24 at 03:00; Stop 12/03/24 at 03:07; Status DC Ketorolac Tromethamine 15 mg ONCE ONCE IV Last administered on 12/03/24at 03:12; Start 12/03/24 at 03:00; Stop 12/03/24 at 03:07; Status DC Lactated Ringer's 1,000 ml BOLUS STAT IV Last administered on 12/03/24at 04:36; Start 12/03/24 at 04:07; Stop 12/03/24 at 04:11; Status DC Lactated Ringer's 1,000 ml @ 75 mls/hr [id number] IV Last administered on 12/03/24at 05:16; Start 12/03/24 at 05:00; Stop 12/03/24 at 05:29; Status DC Acetaminophen 650 mg Q6H PRN PO Last administered on 12/05/24at 16:45; Start 12/03/24 at 05:00; Stop 01/02/25 at 04:59 Acetaminophen 650 mg Q6H PRN RC; Start 12/03/24 at 05:00; Stop 01/02/25 at 04:59 Acetaminophen/ Hydrocodone Bitart FOR MODERATE PAIN SC... Q6H PRN PO; Start 12/03/24 at 05:00; Stop 12/03/24 at 10:23; Status DC Lactulose 20 gm Q6H PRN PO; Start 12/03/24 at 05:00; Stop 01/02/25 at 04:59 Docusate Sodium 100 mg BID PRN PO; Start 12/03/24 at 05:00; Stop 01/02/25 at 04:59 Temazepam 15 mg HS PRN PO; Start 12/03/24 at 05:00; Stop 01/02/25 at 04:59 Ondansetron HCl 4 mg Q6H PRN IVP; Start 12/03/24 at 05:00; Stop 01/02/25 at 04:59 Labetalol HCl 10 mg Q2H PRN IV; Start 12/03/24 at 05:00; Stop 01/02/25 at 04:59 Insulin Human Regular INSULIN SLIDING SCAL... Q6H6 SQ; Start 12/03/24 at 06:00; Stop 12/03/24 at 16:30; Status DC Morphine Sulfate 2 mg Q8H PRN IVP; Start 12/03/24 at 05:00; Stop 12/10/24 at 04:59 Ketorolac Tromethamine 30 mg Q6H PRN IVP; Start 12/03/24 at 05:00; Stop 12/03/24 at 04:53; Status DC Tamsulosin HCl 0.4 mg DAILY PO Last administered on 12/06/24at 08:45; Start 12/03/24 at 05:00; Stop 01/02/25 at 04:59 Midodrine 10 mg ONCE ONCE PO Last administered on 12/03/24at 05:43; Start 12/03/24 at 05:30; Stop 12/03/24 at 05:31; Status DC Lactated Ringer's 1,000 ml @ 75 mls/hr [id number] IV Last administered on 12/05/24at 10:50; Start 12/03/24 at 05:30; Stop 01/02/25 at 05:29 Piperacillin Sod/ Tazobactam Sod 3.375 gm Q8H IVPB; Start 12/03/24 at 11:00; Stop 12/03/24 at 10:20; Status DC Sodium Chloride 50 ml AD IV; Start 12/03/24 at 11:00; Stop 12/03/24 at 10:21; Status DC Ceftriaxone Sodium 1 gm Q24H IVPB Last administered on 12/04/24at 09:53; Start 12/03/24 at 10:30; Stop 12/04/24 at 16:17; Status DC Acetaminophen/ Hydrocodone Bitart 1 tab Q6H PRN PO; Start 12/03/24 at 10:30; Stop 12/08/24 at 10:29 Magnesium Sulfate 50 ml @ 0 mls/hr PROTOCOL IV Last administered on 12/05/24at 06:55; Start 12/03/24 at 16:00; Stop 01/02/25 at 15:59 Iohexol 50 ml STK-MED ONCE IV; Start 12/04/24 at 12:03; Stop 12/04/24 at 12:03; Status DC Piperacillin Sod/ Tazobactam Sod 3.375 gm Q8H IV Last administered on 12/06/24at 08:46; Start 12/04/24 at 16:30; Stop 12/06/24 at 10:07; Status DC Iohexol 75 ml STK-MED ONCE IV; Start 12/05/24 at 10:19; Stop 12/05/24 at 10:19; Status DC Potassium Chloride 100 ml @ 100 mls/hr AD PRN IV; Start 12/05/24 at 19:30; Stop 01/04/25 at 19:29 Potassium Chloride 20 meq AD PRN PO; Start 8/14/25 at 19:30; Stop 01/04/25 at 19:29 Potassium Chloride 20 meq AD PRN PO Last administered on 12/06/24at 08:46; Start 12/05/24 at 19:30; Stop 01/04/25 at 19:29 Ceftriaxone Sodium 1 gm Q24H IVPB; Start 12/06/24 at 10:30; Stop 12/16/24 at 10:29 SEVERO ROUSE Jr. Dec 06, 2024 10:44
--- NOTE | 2024-12-06 15:16 | PN ---
INFECTIOUS DISEASE PROGRESS NOTE Date of Service: Dec 06, 2024 SUBJECTIVE: This 29 year old female patient is being seen today at bedside. Awake, alert and oriented x3. No surgical intervention are being recommended by general surgery at this point. She was placed on diet. No episodes of emesis or nausea. She continue with antibiotics. Patient liver functions is being closely monitored. We continue to follow patient closely. PHYSICAL EXAM EYES: Anicteric. Pupils equal and reactive. HENT: No oral thrush seen, moist Oral mucosa NECK: Supple, no JVD or thyromegaly. LUNGS: Good air entry. No rales, no rhonchi. CARDIOVASCULAR: S1, S2 regular. No murmur heard. ABDOMEN: Soft, non tender, bowel sounds present, no organomegaly CENTRAL NERVOUS SYSTEM: Awake, alert, oriented x 3. No focal deficits. SKIN: No rashes, no swelling. LYMPHATICS: No peripheral lymphadenopathy MUSCULOSKELETAL: No joint swelling, erythema or tenderness. EXTREMITIES: No cyanosis or clubbing BACK: No deformity, no pressure ulcer. Vital Sign (Last 12 Hours) 12/06/24 12/06/24 12/06/24 12/06/24 04:00 08:00 09:30 12:00 Temp 98.8 99.1 98.2 Pulse 73 78 67 Resp 17 18 18 B/P (MAP) 111/71 115/70 117/55 Pulse Ox 97 96 96 97 O2 Delivery Room Air Room Air Room Air* Room Air O2 Flow Rate 0 FiO2 21 21 Intake & Output (last 24hrs) 12/05/24 12/05/24 12/06/24 15:00 23:00 07:00 Intake Total 440 ml Balance 440 ml LABS: Laboratory: Test 12/06/24 08:15 12/05/24 14:21 12/05/24 11:25 12/05/24 04:40 Range/Units White Blood Count 3.8 L 4.8-10.8 K/uL Red Blood Count 3.22 L 4.00-5.50 MIL/uL Hemoglobin 10.1 L 12.0-16.0 g/dL Hematocrit 29.6 L 36-48 % Mean Corpuscular Volume 91.9 79-99 fL Mean Corpuscular Hemoglobin 31.4 27.0-33.0 pg Mean Corpuscular Hemoglobin Concent 34.1 32.0-36.0 g/dL Red Cell Distribution Width 12.9 11.0-15.5 % Platelet Count 196 130-400 K/uL Mean Platelet Volume 9.3 7.5-10.5 fL Nucleated Red Blood Cells 0.0 0.0-0.19 % Sodium Level 138 136-145 mmol/L Potassium Level 3.5 3.5-5.1 mmol/L Chloride Level 104 101-111 mmol/L Carbon Dioxide Level 26 21-32 mmol/L Blood Urea Nitrogen 7 7-18 mg/dL Creatinine 0.6 0.5-1.0 mg/dL Glomerular Filtration Rate Calc 125 >90 mL/min Random Glucose 92 70-105 mg/dL Total Calcium 7.9 L 8.5-10.1 mg/dL Magnesium Level 1.90 1.80-2.40 mg/dL Total Bilirubin 0.8 0.2-1.0 mg/dL Aspartate Amino Transf (AST/SGOT) 105 H 10-37 U/L Alanine Aminotransferase (ALT/SGPT) 149 H 12-78 U/L Alkaline Phosphatase 78 50-136 U/L Total Protein 5.8 L 6.0-8.3 g/dL Albumin 2.4 L 3.5-5.0 g/dL Anti-Nuclear Antibody Screen Negative Negative MOLINA-1 Antibody SS-A/Ro Antibody SS-B/La Antibody Sm (Ewing) IgG Antibody, Quant FOUNTAIN DISPENSER IgG Antibody, Quantitative Scl-70 (Scleroderma) Antibody Anti-Double Strand DNA Antibody Anti-Centromere IgG Antibody Whole Blood Glucose 90 70-110 MG/DL Brucella Total Antibody Agglutin NEGATIVE NEGATIVE Paratyphoid A Antibody NEGATIVE NEGATIVE Paratyphoid B Antibody NEGATIVE NEGATIVE Proteus OX-19 Antibody NEGATIVE NEGATIVE Typhoid H Antibody NEGATIVE NEGATIVE Typhoid O Antibody NEGATIVE NEGATIVE DIAGNOSTICS / RADIOLOGY: REASON: LEFT RENAL CALCULI ORDERING PHYSICIAN: TAMMY TITUS MD PROCEDURE: IVP - IVP W/WO TOMOGRAMS IVP W/WO TOMOGRAMS HISTORY: Postmenopausal CLINICAL HISTORY: Left renal calculus. COMPARISON: None. TECHNIQUES: Intravenous excretory urogram was performed with tomography. FINDINGS: A meeting coordinator film of the abdomen shows no soft tissue abnormality and no pathologic calcification overlying the renal contour or bladder noted. Following intravenous infusion of 100 cc of Omnipaque 350 contrast material, there is prompt symmetrical concentration as noted by nephrograms. No filling defect of the collecting systems are noted. There is normal and symmetrical filling of the calyceal system. Subsequent films demonstrate that the kidneys are of normal size and contour bilaterally. The calyceal system and ureters are in their usual position and show no signs of obstruction or intraluminal defects. The post void film shows normal emptying of the collecting system including the urinary bladder. IMPRESSION: Negative intravenous urogram. REASON: transaminitis, hepatomegaly ORDERING PHYSICIAN: RUSS DIAZ MD PROCEDURE: ABDRUQLTD - US ABDOMINAL RUQ\LTD CLINICAL INFORMATION Hepatomegaly, elevated liver enzymes COMPARISON CT abdomen and pelvis 12/03/2024 TECHNIQUE Transabdominal imaging of the right upper quadrant. FINDINGS LIVER Echogenicity: Normal. Size and Contour: Prominent size of the right hepatic lobe. Portal vein: Patent with hepatopetal flow and a normal waveform. BILIARY Ducts: Normal caliber intra and extrahepatic ducts. Gallbladder: Gallbladder wall thickening measuring up to 7 mm. RIGHT KIDNEY Echogenicity: Normal Size and Contour: Normal Stones: None Hydronephrosis: None. Cysts: None. Pancreas: Limited visualization. Other: No ascites or pleural effusion. MEASUREMENTS (cm) Liver length: 7 cm (normal variable, typically <15-16 cm in mid clavicular line) Common duct: 0.4 cm (normal variable by age and gallbladder status, typically <6 mm) Right Kidney (LxHxW): 11 cm IMPRESSION Prominent size of the right hepatic lobe. No evidence of hepatic steatosis or other parenchymal abnormality. Gallbladder wall thickening measuring up to 7 mm. No cholelithiasis or pericholecystic fluid. Findings are nonspecific and may be related to underlying liver disease. /[place] REASON: L flank pain ORDERING PHYSICIAN: CONNIE FLORES PROCEDURE: ABD PEL WO - CT ABDOMEN/PELVIS W/O CONTRAST EXAM: CT Abdomen and Pelvis without IV contrast CLINICAL HISTORY: Left flank pain. TECHNIQUE: Thin collimated axial CT images of the abdomen and pelvis were obtained with sagittal and coronal reformatted images also submitted. CT scan is done according to ALARA (As Low As Reasonably Achievable). CONTRAST: None. COMPARISON: None. FINDINGS: The included lungs are clear. Mild to moderate hepatomegaly measures up to 22 cm craniocaudally. No focal hepatic abnormality. No focal abnormality within the gallbladder, pancreas, spleen, or adrenals. 0.2 cm obstructive calculus at the left vesicoureteral junction with mild proximal hydroureteronephrosis and perinephric inflammatory changes. There is a punctate nonobstructive calculus at the right renal lower pole. Grossly unremarkable urinary bladder. The uterus and ovaries are within normal limits. No obvious bowel wall thickening, dilatation, or obstruction. Unremarkable appendix. Uncomplicated colonic diverticula. Limited evaluation of the abdominal vessels due to the lack of intravenous contrast. No abdominal aortic aneurysm is evident. No pathological lymphadenopathy in the abdomen or pelvis. No ascites or pneumoperitoneum is evident. No acute bony abnormality is evident. Mild levocurvature of the thoracolumbar spine. IMPRESSIONS: 0.2 cm obstructive calculus at the left vesicoureteral junction with mild proximal hydroureteronephrosis and perinephric inflammatory changes. There is a punctate nonobstructive calculus at the right renal lower pole. Mild to moderate hepatomegaly without focal hepatic abnormality. Uncomplicated colonic diverticula. /[place] : 12/06/24 [facility] PAGE 1 RUN TIME: [id number] [address], [place] [address] Department of Laboratories [facility] # [id number] Traffic Routing Engineer: Svetlana Lemus DO Specimen Report PATIENT: ARNEL OCX ACCT: [id number] LOC: [facility] U: [id number] AGE/SX: 29/F ROOM: [facility] RE12/03/[address]: RUSS DIAZ MD : 1995 BED: 1 DIS: STATUS: ADM IN TLOC: SPEC: [id number] AMY: 12/03/24 STATUS: COMP REQ: [id number] RECD: 12/03/[address]: CONINE FLORES SOURCE: [facility] – [place] ENTR: 12/04/24 BENJI DENSON: RACHELLE SPDESC: CLEAN CAT SELF,REFERRAL ORDERED: AERO ID & SENS Procedure Result Jayson Date-Time AEROBIC ID & SENSITIVITIES Final 12/06/24-532 [facility] COLONY DESCRIPTION: DAY 1: COLONY COUNT: 10,000 - 20,000 CFU/ML GRAM NEGATIVE RODS IDENTIFICATION AND SENSITIVITY TO FOLLOW ESCHERICHIA COLI E COLI M.I.C. RX --------- ---- AMPICILLIN >16 R AZTREONAM <=4 S CEFAZOLIN <=2 S CEFTAZIDIME/AVIBACTAM <=8 S GENTAMICIN <=2 S LEVOFLOXACIN <=0.5 S NITROFURANTOIN <=32 S MEROPENEM <=1 S PIPERACILLIN/TAZOBACTAM <=8 S TRIMETHOPRIM/SUFLAMETHOXAZOLE <=2/38 S @ [facility] Test Performed at: [facility] [address], [place], [place] Medical Bullet Lubricating Machine Operator: Jonathan Mota D.O. REASON: evaluate for cholecystitis ORDERING PHYSICIAN: RUSS DIAZ MD PROCEDURE: HIDA EF - NM HIDA WITH EF/CCK Examination Hepatobiliary study History evaluate for cholecystitis (Hx) / evaluate for cholecystitis, Dynamic (DICOM Hx) (DICOM Hx) Technique Tc-99m mebrofenin were administered intravenously followed by acquisition of planar images of the abdomen. Findings Following administration of radiotracer, there is prompt appearance of normal hepatic contours, followed by appearance of activity in unremarkable appearing bile ducts. There is prompt filling of the gallbladder. The study is negative for acute cholecystitis. IMPRESSION: Negative HIDA study. No evidence of cholecystitis. /[place] REASON: sepsis ORDERING PHYSICIAN: GLENN MICHELLE MD PROCEDURE: ABD PELWWO - CT ABDOMEN/PELVIS W/WO CONTRAS CT ABDOMEN/PELVIS W/WO CONTRAS REASON: sepsis COMPARISON: None. FINDINGS: Lung bases are clear. There are no focal liver lesions. There are normal-appearing kidneys.. Spleen and pancreas appear unremarkable. The gallbladder. No gallstones but there is pericholecystic edema. On the ultrasound the gallbladder wall is thickened. Bowel loops appear unremarkable. This includes normal appearance of the appendix There is no evidence of free fluid or intraperitoneal air. There are no focal fluid collections. Aorta and retroperitoneum appear normal as do pelvic soft tissue structures. The anterior abdominal wall is intact. Osseous structures appear unremarkable. The CAMERA MAKER structures appears to be normal. There is no mass or free fluid within the pelvis. IMPRESSION: 1. The gallbladder has pericholecystic edema with no gallstone identified. This is seen on the ultrasound to have acute cholecystitis. This finding is suggesting acalculous cholecystitis.. CT was performed with one or more following dose reduction techniques: automated exposure control, adjustment of the mA and kv according to patient's size, or use of a iterative reconstruction technique. ASSESSMENT: * Possible gram-negative sepsis. * Left-sided hydronephrosis. * UTI. * Abdominal pain. * Sepsis * Transaminitis PLAN: * Continue ceftriaxone. * Follow up cultures. * Continue IV fluids. * Continue pain management. * Continue antiemetic. * Continue Flomax. * Monitor electrolyte and correct as needed. * Continue nutritional support. This case has been discussed with my supervising physician Dr. Michelle. The case has been discussed and agreed upon. ROSALVA CORDERO [facility] Dec 06, 2024 15:16
--- NOTE | 2024-12-06 16:51 | PN ---
GASTROENTEROLOGY PROGRESS NOTE Date of Visit: Dec 06, 2024 Time of Visit: 16:49 Events / Notes: [This is a 29-year-old female patient with no past medical history who presented to the emergency room with complaints of lower back pain. She was found to have a UTI and is being treated with Bactrim. Admission VS of HR 161 and Temp 105.3 F. On admission, her WBC 10.7, hemoglobin 10.5, platelets 183. Chemistry significant for potassium of 3.4, BUN of five, calcium 8.1, total bilirubin 1.6, AST 98, ALT 108, alkaline phosphatase of 66, albumin 2.5. Lactic acid 2.2. Lipase normal. Acute hepatitis panel is negative. Brucella negative, paratyphoid panel negative, and influenza panel negative. She has negative COVID. Typhoid H and O antibodies negative. CT abdomen and pelvis without contrast: 0.2 cm obstructive calculus at the left vesicoureteral junction with mild proximal hydroureteronephrosis and perin ephric inflammatory changes. There is a punctate nonobstructive calculus at the right renal lower pole. Mild to moderate hepatomegaly without focal hepatic abnormality. Uncomplicated colonic diverticula. Were were consulted for elevated liver enzymes. On exam, patient's VSS. Respirations are unlabored with BBS clear. She is in no acute distress. She denies having any abdominal pain, nausea, vomiting, She has positive left cva tenderness. Informed we will continue to follow and trend liver enzymes. Recommend she f/u at our office as outpatient once discharge to further evaluate. She and spouse at bedside V/U and agreement. 12/06/24: Bilirubin normal today, AST 105, ALT 149.. Alk phos 78. Albumin 2.4 Serologies are pending. Patient's VSS. She reports feeling better and denies having any discomforts. Informed of changes in LFTs and reemphasized importance she f/u at office once discharge. Will continue to follow. She agreed. ] Review of Systems: CONSTITUTIONAL: No malaise or change in sensation of wellbeing. ENMT: No rhinorrhea, otorrhea, sinus pain, ear ache. CARDIOVASCULAR: No angina, palpitations, orthopnea or paroxysmal dyspnea. RESPIRATORY: No SOB. GASTROINTESTINAL: No abdominal pain, nausea, vomiting, diarrhea, hematemesis, melena or change in the patient's habitual bowel movements consistency/number. GENITOURINARY: No dysuria, hematuria or change in bladder continence. MUSCULOSKELETAL: No new muscle pain or decrease in muscular strength. No new joint swelling, redness or tenderness. SKIN: No new rash. Physical Exam: GEN: Awake, alert, oriented in person, time and place, and in no acute distress. HEENT: Oral pharyngeal mucosa is pink, moist and within normal limits. CHEST: Respirations regular and unlabored. CARDIAC: regular rate ABD: Soft, EXT: No cyanosis or clubbing. No edema. SKIN: Intact. No rashes. JOINTS: No evidence of synovitis or acute arthritis. NEURO: Alert and oriented to name, place and person. Normal speech. Vital Signs (last 8hr) Date Time Temp Pulse Resp B/P (MAP) Pulse Ox O2 Delivery O2 Flow Rate FiO2 12/06/24 12:00 98.2 67 18 117/55 97 Room Air 12/06/24 09:30 96 Room Air* 0 21 Laboratory: [ ] Laboratory: Test 12/06/24 08:15 12/05/24 14:21 12/05/24 11:25 12/05/24 04:40 Range/Units White Blood Count 3.8 L 4.8-10.8 K/uL Red Blood Count 3.22 L 4.00-5.50 MIL/uL Hemoglobin 10.1 L 12.0-16.0 g/dL Hematocrit 29.6 L 36-48 % Mean Corpuscular Volume 91.9 79-99 fL Mean Corpuscular Hemoglobin 31.4 27.0-33.0 pg Mean Corpuscular Hemoglobin Concent 34.1 32.0-36.0 g/dL Red Cell Distribution Width 12.9 11.0-15.5 % Platelet Count 196 130-400 K/uL Mean Platelet Volume 9.3 7.5-10.5 fL Nucleated Red Blood Cells 0.0 0.0-0.19 % Sodium Level 138 136-145 mmol/L Potassium Level 3.5 3.5-5.1 mmol/L Chloride Level 104 101-111 mmol/L Carbon Dioxide Level 26 21-32 mmol/L Blood Urea Nitrogen 7 7-18 mg/dL Creatinine 0.6 0.5-1.0 mg/dL Glomerular Filtration Rate Calc 125 >90 mL/min Random Glucose 92 70-105 mg/dL Total Calcium 7.9 L 8.5-10.1 mg/dL Magnesium Level 1.90 1.80-2.40 mg/dL Total Bilirubin 0.8 0.2-1.0 mg/dL Aspartate Amino Transf (AST/SGOT) 105 H 10-37 U/L Alanine Aminotransferase (ALT/SGPT) 149 H 12-78 U/L Alkaline Phosphatase 78 50-136 U/L Total Protein 5.8 L 6.0-8.3 g/dL Albumin 2.4 L 3.5-5.0 g/dL Ceruloplasmin 32.6 19.0-39.0 mg/dL Anti-Nuclear Antibody Screen Negative Negative MOLINA-1 Antibody SS-A/Ro Antibody SS-B/La Antibody Sm (Ewing) IgG Antibody, Quant SCANNING MANAGER IgG Antibody, Quantitative Scl-70 (Scleroderma) Antibody Anti-Double Strand DNA Antibody Anti-Centromere IgG Antibody Whole Blood Glucose 90 70-110 MG/DL Brucella Total Antibody Agglutin NEGATIVE NEGATIVE Paratyphoid A Antibody NEGATIVE NEGATIVE Paratyphoid B Antibody NEGATIVE NEGATIVE Proteus OX-19 Antibody NEGATIVE NEGATIVE Typhoid H Antibody NEGATIVE NEGATIVE Typhoid O Antibody NEGATIVE NEGATIVE Current Medications Medications (Trade) Dose Ordered Sig/Aiden Route PRN Reason Start Time Stop Time Status Last Admin Dose Admin Acetaminophen (TYLenol 325MG TAB) 650 mg Q6H PRN PO FEVER/MILD PAIN LEVEL 1-3 12/03/24 05:00 01/02/25 04:59 12/06/24 16:18 650 MG Acetaminophen (TYLenol 650MG SUPPOSITORY) 650 mg Q6H PRN RC FEVER / MILD PAIN 1-3 IF NPO 12/03/24 05:00 01/02/25 04:59 Acetaminophen/ Hydrocodone Bitart (NORco 5/325MG) 1 tab Q6H PRN PO MODERATE PAIN (4-6) 12/03/24 10:30 12/08/24 10:29 Acetaminophen/ Hydrocodone Bitart (NORco 5/325MG) FOR MODERATE PAIN SC... Q6H PRN PO PAIN 4-10 12/03/24 05:00 12/03/24 10:23 DC Ceftriaxone Sodium (ROCEphine 1G INJ) 1 gm Q24H IVPB 12/03/24 10:30 12/04/24 16:17 DC 12/04/24 09:53 1 GM Ceftriaxone Sodium (ROCEphine 1G INJ) 1 gm Q24H IVPB 12/06/24 10:30 12/16/24 10:29 12/06/24 11:53 1 GM Docusate Sodium (COLace 100MG CAP) 100 mg BID PRN PO CONSTIPATION 12/03/24 05:00 01/02/25 04:59 Insulin Human Regular (humuLIN R 100 UNIT/ML 3ML) INSULIN SLIDING SCAL... Q6H6 SQ 12/03/24 06:00 12/03/24 16:30 DC Ketorolac Tromethamine (toRADol) 30 mg Q6H PRN IVP SEVERE PAIN (7-10) 12/03/24 05:00 12/03/24 04:53 DC Labetalol HCl (TRANdate 20MG SYG) 10 mg Q2H PRN IV SBP GREATER THAN 160 12/03/24 05:00 01/02/25 04:59 Lactated Ringer's 1,000 ml @ 75 mls/hr [id number] IV 12/03/24 05:00 12/03/24 05:29 DC 12/03/24 05:16 75 MLS/HR Lactated Ringer's 1,000 ml @ 75 mls/hr [id number] IV 12/03/24 05:30 01/02/25 05:29 12/06/24 16:20 75 MLS/HR Lactated Ringer's (Lactated Ringers 1000ml) 1,000 ml BOLUS STAT IV 12/03/24 04:07 12/03/24 04:11 DC 12/03/24 04:36 1,000 ML Lactulose (Constulose 20gm/ 30ml Udcup) 20 gm Q6H PRN PO CONSTIPATION 12/03/24 05:00 01/02/25 04:59 Magnesium Sulfate 50 ml @ 0 mls/hr PROTOCOL IV 12/03/24 16:00 01/02/25 15:59 12/05/24 06:55 25 MLS/HR Morphine Sulfate (morPHINE 2MG SYG) 2 mg Q8H PRN IVP SEVERE PAIN (7-10) 12/03/24 05:00 12/10/24 04:59 Ondansetron HCl (zoFRAN 4MG INJ) 4 mg Q6H PRN IVP NAUSEA/VOMITING 12/03/24 05:00 01/02/25 04:59 Piperacillin Sod/ Tazobactam Sod (Zosyn 3.375gm+NS 50ml) 3.375 gm Q8H IV 12/04/24 16:30 12/06/24 10:07 DC 12/06/24 08:46 3.375 GM Piperacillin Sod/ Tazobactam Sod (Zosyn 3.375gm+NS 50ml) 3.375 gm Q8H IVPB 12/03/24 11:00 12/03/24 10:20 DC Potassium Chloride 100 ml @ 100 mls/hr AD PRN IV POTASSIUM PROTOCOL 12/05/24 19:30 01/04/25 19:29 Potassium Chloride (K-Dur/Klor-Con 20meq) 20 meq AD PRN PO POTASSIUM PROTOCOL 12/05/24 19:30 01/04/25 19:29 12/06/24 16:17 20 MEQ Potassium Chloride (KCl 10% Elixir 20meq/15ml) 20 meq AD PRN PO POTASSIUM PROTOCOL 12/05/24 19:30 01/04/25 19:29 Sodium Chloride (NS 50ml) 50 ml AD IV 12/03/24 11:00 12/03/24 10:21 DC Tamsulosin HCl (FloMAX) 0.4 mg DAILY PO 12/03/24 05:00 01/02/25 04:59 12/06/24 08:45 0.4 MG Temazepam (restORIL 15 MG CAP) 15 mg HS PRN PO INSOMNIA/SLEEP 12/03/24 05:00 01/02/25 04:59 Diagnostics / Radiology: [COPY/PASTE HERE IF NO REPORTS PLEASE DELETE SECTION] Assessment: [ Transaminitis Hyperbilirubinemia-resolved Hepatomegaly] Plan: [NO gi intervention at this time Trend LFTs LIver serologies ordered Recommend checking for hemolysis as outpatient Patient is to f/u at office in 1 week. Thank you for this consult. ] GAIL PRITCHETT NP Dec 06, 2024 16:51
[2024-12-07 03:30] VITALS: BP 95/59; PULSE 61; RESP 20; TEMP 98.1
[2024-12-07 04:14] LABS: NUCLEATED RED BLOOD CELLS 0.0 % (0.0-0.19); PLATELET COUNT (AUTO) 218.0 K/uL (130-400); RED BLOOD CELL COUNT(AUTO) 3.41 MIL/uL (4.00-5.50); RED CELL DISTRIBUTION WIDTH 13.1 % (11.0-15.5); WHITE BLOOD COUNT (AUTO) 4.3 K/uL (4.8-10.8)
[2024-12-07 06:49] LABS: ASPARTATE AMINOTRANSFERASE 100.0 U/L (10-37); CREATININE 0.6 mg/dL (0.5-1.0); GLOMERULAR FILTR. RATE CALC 125.0 mL/min (>90); GLUCOSE,RANDOM 100.0 mg/dL (70-105); SODIUM SERUM 142.0 mmol/L (136-145); TOTAL PROTEIN, SERUM 6.2 g/dL (6.0-8.3); UREA NITROGEN, BLOOD 6.0 mg/dL (7-18)
[2024-12-07 07:13] VITALS: O2SAT 98
[2024-12-07 08:00] VITALS: BP 108/73; PULSE 56; RESP 18; TEMP 98.1
[2024-12-07 12:00] VITALS: BP 106/70; PULSE 62; RESP 19; TEMP 98.1
--- NOTE | 2024-12-07 13:35 | NUR ---
DC INSTRUCTIONS GIVEN AND ACKNOWLEDGED. IV REMOVED
--- NOTE | 2024-12-07 14:51 | DS ---
Discharge Summary Hospital Course Summary: The patient initially admitted to the hospital December 03, 2024 with the following history of the present illness: Ms. Verdugo is a 29-year-old female with no past medical history who presents to [facility] for evaluation of left lower back pain. Patient reported she initiated with dysuria and urinary tract symptoms one week ago. Patient was initiated on antibiotics (Bactrim) today. She states she initiated feeling dizzy, nausea, vomiting, left back pain, chills onset this evening. Patient presented with a blood pressure of 106/52, heart rate 161, 105.3 F, 97% on room air. WBCs WNL. Lactic acid 2.2. Liver enzymes are elevated. Lipase WNL. UA: Positive ketones, leukocytes esterase. CT abdomen and pelvis without contrast: 0.2 cm obstructive calculus at the left vesicoureteral junction with mild proximal hydroureteronephrosis and perinephric inflammatory changes. There is a punctate nonobstructive calculus at the right renal lower pole. Mild to moderate hepatomegaly without focal hepatic abnormality. Uncomplicated colonic diverticula. ED administered LR1 L bolus, NS 2 L, Toradol 50 mg IV, Rocephin1 g, Zofran mg IV, Tylenol 1 g. ED provider requested patient be admitted to the hospital with a diagnosis of pyelonephritis and lactic acidemia. HOSPITAL COURSE 12/04 patient is seen and examined at bedside, she remains admitted to the medical floor, case discussed with the RN, no acute events overnight, patient getting IV fluids and IV antibiotics at the time of my visit. Spiked temperature 100.6. The patient underwent intravenous pyelogram, results available at the time of my dictation, negative intravenous urogram. Urology input noted and appreciated. We will continue current pain medication. Continue to follow results of septic workup, continue to follow infectious disease input and recommendation. Anticipate discharge home in the next 24-48 hours if medically stable. Patient in agreement. 12/05 patient remains admitted to the medical floor, case discussed with the RN, patient is still spiking fever, maximum temperature 100.2. He is on broad- spectrum IV antibiotics. Results of IV pyelogram unremarkable, no acute findings. Infectious disease input noted and appreciated, recommended CT of the abdomen and pelvis for further evaluation of the possibility of abscess. Continue current pain medication, continue to trend WBC in a.m.. 12/06 the patient has been seen and examined at bedside, case discussed with the RN, no acute events overnight, the patient has remained afebrile, she is alert oriented x3, getting IV fluids, no nausea, no vomiting, no abdominal discomfort, HIDA scan results reviewed, discussed with the patient, negative for acute cholecystitis. Results of urine culture positive for E coli. Liver enzymes mildly elevated today, GI input noted and appreciated, we will continue to trend liver enzymes in the next 24 hours. Continue to follow GI and ID input and recommendation. Continue to follow surgical input and recommendation. Change Zosyn IV to Rocephin IV. 12/07 TODAY THE PATIENT IS ALERT ORIENTED X3, HEMODYNAMICALLY STABLE, AFEBRILE, SATURATING NORMAL ON ROOM AIR, RESULTS OF HIDA SCAN HAS BEEN NEGATIVE, NO PLAN FOR INTERVENTION FROM SURGICAL STANDPOINT. PATIENT DENIES DIZZINESS, NO HEADACHE, NO BLURRY VISION, NO CHEST PAIN, SHORTNESS SHORTNESS FOR BREATH, NO NAUSEA, NO VOMITING, SHE WOULD LIKE TO BE DISCHARGED HOME. LIVER ENZYMES SLOWLY IMPROVING. RECOMMENDED THE PATIENT TO FOLLOW WITH GI AN OUTPATIENT IN ONE WEEK TO HAVE REPEAT LIVER ENZYMES CHECK. PATIENT IN AGREEMENT. 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 Assessment/Plan: Final diagnosis Severe Sepsis, POA Hypotension, in need of multiple boluses and Midodrine Acute complicated cystitis, with culture positive for E coli POA 0.2 cm obstructive calculus at the left vesicoureteral junction with: -mild proximal hydroureteronephrosis -perinephric inflammatory changes per CT on 12/03/2024 Punctate nonobstructive calculus at the right renal lower pole, per CT on 12/03/2024 Pyelonephritis, POA Lactic acidemia, POA Acute dehydration, POA/ketonuria, POA Acute febrile illness, POA Hepatomegaly, mild to moderate, per CT on 12/03/2024 Uncomplicated colonic diverticula, per CT on 12/03/2024 Hyperglycemia Transaminitis Hypoalbuminemia Discharge Instructions: The patient to be discharged home to , to follow up with her PCP as an outpat ient to have her liver enzymes check with a one week, patient advised to return to the hospital if her condition changes. Patient agreed with the plan and understood the information provided. Home Medications: Discontinued Reported Medications Sulfamethoxazole/Trimethoprim (Bactrim Ss/Septra Ss) 400 Mg-80 Mg Tab, 1 TAB PO BID for UTI 12/03/24 Time spent arranging discharge: 31-60 minutes RUSS DIAZ MD Dec 07, 2024 14:51
[2024-12-07] MEDS ORDERED: CEFD300C3 PO (14:52)
[2024-12-09 03:08] LABS: ALPHA-1-ANTITRYPSIN 246 mg/dL (100-188)
== END 2024-12-07 13:40 | disposition home or self-care (01) | DRG 872 ==
LOC: EDH 01:28 → EDHIP 01:29 → 3AH 08:30
PROVIDERS: ADMIT Internal Medicine; ATTEND Internal Medicine
DX: A41.9 Sepsis, unspecified organism (principal); E87.20 Acidosis, unspecified; N13.6 Pyonephrosis; K81.0 Acute cholecystitis; R65.20 Severe sepsis without septic shock; K57.30 Diverticulosis of large intestine without perforation or abscess without bleeding; E86.0 Dehydration; K59.00 Constipation, unspecified; E88.09 Other disorders of plasma-protein metabolism, not elsewhere classified; R74.01 Elevation of levels of liver transaminase levels; E11.65 Type 2 diabetes mellitus with hyperglycemia; I10 Essential (primary) hypertension; Z79.899 Other long term (current) drug therapy; Z87.442 Personal history of urinary calculi; Z98.891 History of uterine scar from previous surgery
CPT/HCPCS: 36415; 74176; 74178; 74400; 76705; 78227; 80048; 80053; 80074; 80076; 81001; 81025; 82103; 82104; 82390; 82948; 83010; 83605; 83615; 83690; 83735; 84100; 85025; 85027; 86000; 86015; 86038; 86215; 86235; 86376; 86381; 87040; 87086; 87186; 87635; 87804; 87880; 96374; 99285; A9537; G0378; J0696; J1885; J2405; J2543; J3475; J7030; J7120; Q9967